=== PATIENT | female | born 1985 | race Caucasian/White ===

== ENCOUNTER 2023-07-12 08:40 | Inpatient (IN) | payer OTHER, SELFPAY ==
[2023-07-10] VITALS (10 sets, daily range): BP systolic 95–154; BP diastolic 62–90; BMI 22.4; BMI 23.0
[2023-07-10] MEDS: ZOFRAN 4 MG IV ×2 (10:23→20:11)
[2023-07-10] MEDS: NSS 1000 IV ×3 (10:24→20:11)
--- NOTE | 2023-07-10 10:29 | ED.GENMED ---
History of Present Illness
General
Chief Complaint: Abdominal Pain
Source: patient
Exam Limitations: none
Time Seen by Provider: 07/10/23 10:16
Travel History
Have you had any contact with someone who has COVID-19?: No
Do you have any symptoms of coronavirus? Fever > 100 degrees, chills, cough, shortness of breath, sore throat, loss of taste or smell, muscle aches, or headache?: No
History of Present Illness
History of Present Illness:
38-year-old female presents via EMS with abdominal pain diarrhea and vomiting. This started earlier this morning. She states she has had episodes similar to this in the past but never as she vomited this much. She notes the pain is in the right
side of the abdomen in the center of the abdomen does not radiate to the back. She notes social alcohol use denies marijuana use. She notes regular caffeine use. She states at one point someone diagnosed with pancreatic insufficiency. No prior
abdominal surgical history
Past History
Past History
ED Past Medical History: None
ED Past Surgical History: None
Social History
Personal:
Phy Exam
Physical Exam
Physical Exam:
General: Somewhat ill-appearing female no acute respiratory distress
HEENT: Normocephalic atraumatic
Heart: Regular rate and rhythm no murmurs
Lungs: Clear no wheeze
Abdomen: Soft tender to the epigastric and right side of the abdomen. No guarding rebound normal bowel sounds nondistended
Extremities: No cyanosis
Course
Orders/Labs/Results
Orders:
Orders
07/10/23 10:17
Electrocardiogram (*1) Urgent
Reason for Study: Fatigue / Weakness
EKG- Treatment ONCE
Test Result ONCE
07/10/23 10:19
Ondansetron Injectable [Zofran] 4 mg IV NOW STA
07/10/23 10:24
0.9% Sodium Chloride 1000 ml [Nss] 1,000 ml IV BOLUS
07/10/23 10:26
US Abdomen Complete/Upper Urgent
Comment:
Reason For Exam: RUQ pain
07/10/23 10:28
Complete Blood Count/With Diff Urgent
07/10/23 10:44
Metoclopramide [Reglan] 10 mg .ROUTE .STK-MED ONE
07/10/23 10:45
Diphenhydramine [Benadryl] 50 mg .ROUTE .STK-MED ONE
07/10/23 10:47
Metoclopramide [Reglan] 10 mg IV NOW STA
07/10/23 10:48
Diphenhydramine [Benadryl] 25 mg IV NOW STA
07/10/23 11:33
Comprehensive Metabolic Panel Urgent
HCG, Serum Qualitative Screen Urgent
Lipase Urgent
07/10/23 12:44
Haloperidol Lactate [Haldol] 2 mg IV NOW STA
07/10/23 13:30
Famotidine [Pepcid] 20 mg IV NOW STA
07/10/23 13:48
0.9% Sodium Chloride 1000 ml [Nss] 1,000 ml IV BOLUS
Abnormal Lab Results
07/10/23 07/10/23
10:28 11:33
MCH 32.0 H pg
(27.0-31.0)
Abs Immat Gran (auto) 0.1 H 10^3/uL
(0-0.05)
Absolute Neuts (auto) 8.2 H 10^3/uL
(1.4-6.5)
Immature Gran % 0.6 H %
(0-0.5)
Neutrophils % 81.6 H %
(42.2-75.2)
Lymphocytes % 13.8 L %
(20.5-51.1)
Chloride 112 H mmol/L
(98-107)
Glucose 118 H mg/dl
(70-99)
07/10/23 10:28
07/10/23 11:33
Vital Signs
Initial and Last Documented VS:
Initial Vital Signs
Temp Pulse Resp BP Pulse Ox
97.8 F 70 16 95/62 98
07/10/23 10:16 07/10/23 10:16 07/10/23 10:16 07/10/23 10:16 07/10/23 10:16
Last Documented Vital Signs
Temp Pulse Resp BP Pulse Ox
97.8 F 73 26 95/62 100
07/10/23 10:16 07/10/23 10:45 07/10/23 10:45 07/10/23 10:16 07/10/23 10:16
MDM/Problems Addressed
Differential Diagnosis Includes:
Abdominal pain nausea vomiting with diarrhea consider viral illness versus pancreatitis versus biliary colic
Check for electrolyte abnormality with blood work. Fluids ordered Zofran ordered. Ultrasound pending.
*Critical Care Note
Total Time (30-74mins, 75-104mins- exclusive of procedures): Not Applicable
Update Note
Update Note:
Patient given multiple rounds of nausea medicine including Zofran Reglan and now Haldol. She states she is still nauseous cannot keep anything down now requiring a second bag of fluid. Reviewed the ultrasound which is negative for acute findings.
Nothing specific otherwise on exam. Patient's nausea and vomiting is intractable. Cannot send home. Will admit for intractable symptoms.
ED Attending Note
-
Portions of this chart may have been created with voice recognition software.� Occasional wrong word or��sound alike� substitutions may have occurred due to the inherent limitations of voice recognition software.
Discharge Plan
Departure
Patient Disposition: Admit
Date of Disposition: 07/10/23
Time of Disposition: 13:51
Admit to: Med/Surg
Presentation/result/management discussed w/ accepting MD/DO: Hospitalist
Discharge Problem:
Nausea & vomiting
Referrals:
UNKNOWN - PT DOES,NOT KNOW [Family Provider] -
Interventions
Interventions:
*Risk Screen - Suicide Last Done: 07/10/23 10:16
*General Assessment Last Done: 07/10/23 10:16
*Neglect/Abuse Screening Last Done: 07/10/23 10:16
ED- Fall Risk Assessment Last Done: 07/10/23 10:16
*ED COVID-19 Vaccine History Last Done: 07/10/23 10:16
Discharge Date and Time
Print Language: SUDANESE
[2023-07-10 10:43] LABS: % Basophils 0.2 % (0-2); % Immature Granulocytes 0.6 % (0-0.5); % Lymphocytes 13.8 % (20.5-51.1); % Monocytes 3.8 % (1.7-9.3); % Neutrophils 81.6 % (42.2-75.2); Absolute Immature Granulocytes 0.1 10^3/uL (0-0.05); Absolute Lymphocytes 1.4 10^3/uL (1.2-3.4); Absolute Monocytes 0.4 10^3/uL (0.1-0.6); Absolute Neutrophils 8.2 10^3/uL (1.4-6.5); Hemoglobin 14.1 g/dL (12.0-16.0); Mean Corp Hgb Conc. 35.3 g/dL (33.0-37.0); Mean Corpuscular Volume 90.9 fL (81.0-99.0); Mean Platelet Volume 9.3 fL (7.4-10.4); Nucleated Red Blood Cells % 0 %; Platelet Count 311 10^3/uL (130-400); Red Cell Dist. Width 11.8 % (11.5-14.5)
[2023-07-10] MEDS: REGLAN 10 MG IV ×2 (10:48→23:25)
[2023-07-10] MEDS: BENADRYL 25 MG IV (10:49)
[2023-07-10 12:03] LABS: HCG, Serum Qualitative Screen Negative
[2023-07-10 12:04] LABS: ALT (SGPT) 19 U/L (0-35); AST (SGOT) 25 U/L (14-36); Albumin 4.5 g/dl (3.5-5.0); Alkaline Phosphatase 69 U/L (38-126); Blood Urea Nitrogen 15 mg/dl (7-17); Calcium 9.4 mg/dl (8.4-10.2); Carbon Dioxide 23 mmol/L (22-30); Chloride 112 mmol/L (98-107); Estimated Creatinine Clearance 108 ml/min; Glucose 118 mg/dl (70-99); Lipase 58 U/L (23-300); Sodium 143 mmol/L (135-145); Total Bilirubin 0.9 mg/dl (0.2-1.3); Total Protein 6.8 g/dl (6.3-8.2); eGFR > 60.00
[2023-07-10] MEDS: HALDOL 2 MG IV (12:46)
[2023-07-10] MEDS: PEPCID 20 MG IV (13:50)
--- NOTE | 2023-07-10 16:39 | HPS.HSE ---
Family Physician
-
Family Physician: NOT KNOW UNKNOWN - PT DOES
Chief Complaint
-
Intractable nausea and vomiting
History of Present Illness
Patient is a 38-year-old female with no prior medical history other than reported periodic episodes of nausea and vomiting who presents to the emergency room with acute onset of abdominal discomfort, persistent nausea and vomiting for less than 24
hours. Patient reports abdominal discomfort. She has been afebrile although reports to chills at home. She had single episode of a loose bowel movement. She denies any sick contacts or recent travel. She states that she has periodic episode of
nausea and vomiting and has been evaluated with gastroenterology in the past including endoscopy, although could not recall timing. She denies any illicit substances use or alcohol use. She presented to emergency room today because of the
persistent symptoms.
While in emergency room patient is afebrile, hemodynamically stable and nontoxic-appearing. She was treated with IV fluids antiemetics, Haldol, Pepcid with no significant improvement of symptoms.
Medical History
Past Medical History
Past Medical History: Denies Asthma, Cancer, HTN, IDDM or NIDDM
Past Surgical History: Reports None
Social History
Tobacco: Non-smoker
Alcohol: Occasional
Drug: None
Living: With Family
Family History
Family History: Not pertinent
Allergies / Home Medications
Allergies reflects when Allergies were last updated in [facility].
Home Medications with original date entered in [facility]
Allergy/Medication List:
Allergies
Allergy/AdvReac Type Severity Reaction Status Date / Time
No Known Allergies Allergy Unverified 07/10/23 10:18
Home Medications
No Meds [No Current Medications] 07/10/23
Review of Systems
-
A 12 point ROS was completed and negative except as noted: Yes
Physical Exam
Vital Signs
Vital Signs
Temp Pulse Resp BP Pulse Ox
97.8 F 54 13 105/90 100
07/10/23 10:16 07/10/23 14:30 07/10/23 14:30 07/10/23 14:00 07/10/23 10:16
Physical Exam
General: Well Developed, Well Nourished and No Apparent Distress
HEENT: NormoCephalic, Moist mucous membranes and Atraumatic
Respiratory: Clear
Cardiac: S1/S2 and Regular Rhythm; No Murmur or Rub
GI: Soft, Non Tender, Non Distended and Normal Bowel Sounds; No Organomegaly
Rectal: Deferred by Provider
Musculoskeletal: No Clubbing, No Cyanosis and No Edema
Skin: No Rash
Neuro: Nonfocal/grossly intact
Laboratory Results
-
07/10/23 10:28
07/10/23 11:33
Laboratory Results
Total Bilirubin 0.9 mg/dl (0.2-1.3) 07/10/23 11:33
AST 25 U/L (14-36) 07/10/23 11:33
ALT 19 U/L (0-35) 07/10/23 11:33
Alkaline Phosphatase 69 U/L (38-126) 07/10/23 11:33
Lipase 58 U/L (23-300) 07/10/23 11:33
Impression/Plan
-
IMPRESSION:
Persistent nausea and vomiting.
Unclear etiology
Afebrile and hemodynamically stable, nontoxic-appearing
Exam with benign abdomen
Laboratory workup including CBC CMP within normal limits
Abdominal ultrasound unremarkable
PLAN:
Admit for observation
Check urine drug screen.
Urinalysis and reflex to culture
Hemoglobin A1c, TSH.
Clear liquid diet
Continue IV fluids
IV PPI
Antiemetics.
Follow-up with CBC/CMP in AM.
If persistent symptoms, consider additional imaging and gastroenterology evaluation.
Full code
DVT prophylaxis with heparin.
[2023-07-10] MEDS: PROTONIX IV 40 MG IV (18:13)
[2023-07-10] MEDS: NSS (PRESERVATIVE FREE) 10 ML IV (18:13)
[2023-07-10 18:58] LABS: ALT (SGPT) 17 U/L (0-35); AST (SGOT) 21 U/L (14-36); Albumin 4.6 g/dl (3.5-5.0); Alkaline Phosphatase 66 U/L (38-126); Blood Urea Nitrogen 15 mg/dl (7-17); Calcium 9.5 mg/dl (8.4-10.2); Carbon Dioxide 18 mmol/L (22-30); Chloride 113 mmol/L (98-107); Estimated Creatinine Clearance 104 ml/min; Glucose 126 mg/dl (70-99); Potassium 4.1 mmol/L (3.5-5.1); Sodium 143 mmol/L (135-145); Total Bilirubin 1.1 mg/dl (0.2-1.3); eGFR > 60.00
[2023-07-10 19:11] LABS: TSH 2.71 uIU/ml (0.47-4.68)
[2023-07-10] MEDS: FLUSH (NSS) 1 FLUSH IV (20:12)
--- NOTE | 2023-07-10 20:20 | PTCARENOTE ---
Pt complained of 3/10 middle, upper abd pain from throwing up, INNER TUBE TUBER MACHINE OPERATOR made aware, new order provided, see MAR. Pt complained of gas pains and feeling uncomfortable, INNER TUBE TUBER MACHINE OPERATOR made aware, new order provided, see MAR. Will continue to monitor.
[2023-07-10] MEDS: TYLENOL 650 MG PO (21:51)
[2023-07-10] MEDS: MYLICON 80 MG PO (21:51)
--- NOTE | 2023-07-10 23:10 | PTCARENOTE ---
Pt complained of unresolved nausea. POCKET FLAP CREASING MACHINE OPERATOR made aware, new order provided, see MAR.
[2023-07-10 23:11] LABS: Urine Albumin Trace (Neg - Trace); Urine Bilirubin Negative (Negative); Urine Character Clear (Clear); Urine Color Yellow; Urine Glucose Trace (Negative); Urine Ketone Trace (Negative); Urine Leukocyte Negative (Negative); Urine Nitrite Negative (Negative); Urine Occult Blood Trace (Negative); Urine Specific Gravity 1.025 (<1.030); Urine Urobilinogen Negative (Neg - 1+)
[2023-07-10 23:18] LABS: Amphetamines Negative (Negative); Barbiturates Negative (Negative); Benzodiazepines Negative (Negative); Buprenorphine Negative (Negative); Cocaine Negative (Negative); Marijuana Negative (Negative); Methadone Negative (Negative); Methamphetamines Negative (Negative); Opiates Negative (Negative); Phencyclidine Negative (Negative); Tricyclic Antidepressants Negative (Negative)
[2023-07-11 00:56] LABS: Urine Amorphous Seen; Urine Squamous Cell >30 /LPF (Few)
[2023-07-11 00:58] LABS: Urine Bacteria Moderate (Negative); Urine Mucus Moderate; Urine Red Blood Cell 0-2 /HPF (0-2); Urine White Cell 0-2 /HPF (0-5)
[2023-07-11] MEDS: ZOFRAN 4 MG IV ×3 (02:21→19:59)
[2023-07-11 07:00] VITALS: BP 135/54
[2023-07-11 07:12] LABS: % Basophils 0.3 % (0-2); % Immature Granulocytes 0.7 % (0-0.5); % Lymphocytes 12.4 % (20.5-51.1); % Monocytes 7.2 % (1.7-9.3); % Neutrophils 79.4 % (42.2-75.2); Absolute Immature Granulocytes 0.1 10^3/uL (0-0.05); Absolute Lymphocytes 1.5 10^3/uL (1.2-3.4); Absolute Monocytes 0.8 10^3/uL (0.1-0.6); Absolute Neutrophils 9.3 10^3/uL (1.4-6.5); Hemoglobin 12.1 g/dL (12.0-16.0); Mean Corp Hgb Conc. 34.6 g/dL (33.0-37.0); Mean Corpuscular Hgb 31.8 pg (27.0-31.0); Mean Corpuscular Volume 91.9 fL (81.0-99.0); Nucleated Red Blood Cells % 0 %; Platelet Count 256 10^3/uL (130-400); Red Blood Cell Count 3.81 10^6/uL (4.20-5.40); Red Cell Dist. Width 12.2 % (11.5-14.5); White Blood Cell Count 11.7 10^3/uL (4.8-10.8)
[2023-07-11] MEDS: PROTONIX IV 40 MG IV ×2 (07:38→19:59)
[2023-07-11] MEDS: NSS (PRESERVATIVE FREE) 10 ML IV ×2 (07:39→19:59)
[2023-07-11] MEDS: NSS 1000 IV (07:43)
[2023-07-11] MEDS: MYLICON 80 MG PO ×2 (07:43→17:56)
[2023-07-11 08:34] LABS: ALT (SGPT) 16 U/L (0-35); AST (SGOT) 24 U/L (14-36); Albumin 4.5 g/dl (3.5-5.0); Alkaline Phosphatase 62 U/L (38-126); Blood Urea Nitrogen 16 mg/dl (7-17); Calcium 9.8 mg/dl (8.4-10.2); Carbon Dioxide 19 mmol/L (22-30); Chloride 110 mmol/L (98-107); Estimated Creatinine Clearance 104 ml/min; Glucose 111 mg/dl (70-99); Potassium 3.5 mmol/L (3.5-5.1); Sodium 140 mmol/L (135-145); Total Bilirubin 1.3 mg/dl (0.2-1.3); Total Protein 6.8 g/dl (6.3-8.2); eGFR > 60.00
[2023-07-11 10:09] LABS: Glycohemoglobin (HgbA1c) 5.4 % (4.0-5.6)
[2023-07-11] MEDS: COMPAZINE 10 MG IV (11:17)
--- NOTE | 2023-07-11 12:28 | CON.GI ---
Addendum entered and electronically signed by Mary Kate Santana MD 07/11/23 16:52:
I saw and examined the patient.
The ASSISTANT TENNIS COACH or PA's note was reviewed and I agree with the note.
Comment: 38-year-old female with history of GERD presenting with complaints of intractable vomiting since Monday at 1 AM. 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
bilious vomiting, multiple episodes, came to mom who lives in [place] and was brought in by EMS to the ER. Reports multiple similar episodes in the last 5 years, last episode was 3 weeks ago and last episode when she was admitted to [facility] was about 7 months ago. In between episodes, she feels well. She does report abdominal pain couple of times a week in the lower abdomen, no vomiting in between episodes. History of heartburn, takes omeprazole twice a day with relatively
good control of symptoms. No trouble swallowing. Bowel pattern is erratic, she has either constipation or diarrhea, she did not go for 5 days and may have loose stool for 2 days. Reports having black stool yesterday but documented brown stool per
RN record. No unintentional weight loss or NSAID use.
In the emergency room, labs unremarkable including CBC, CMP, lipase levels. Moderate bacteria in the urine, urine drug screen negative.
Reports having upper endoscopy and colonoscopy at [facility] 5 years ago, cannot recall findings. As per patient, she was on pancreatic enzyme supplements for pancreatic exocrine insufficiency, she cannot recall what symptoms she had but
says had to stop pancreatic enzyme supplements due to insurance reasons. Patient not sure if she had pancreatitis in the past.
No family history of colon cancer or polyps or inflammatory bowel disease but father with history of recurrent pancreatitis.
-Intractable nausea, vomiting, multiple episodes of unclear etiology. She does smoke and has couple of drinks a week but no marijuana use.
Does not take any medications or narcotics. No history of diabetes.
No significant electrolyte abnormalities.
Will treat with [id number] antiemetics for nausea and vomiting, EPI IV twice daily.
NPO.
Will do CT scan of the abdomen and pelvis to evaluate tomorrow.
Following that, we will need an upper endoscopy.
Will also review records from [facility].
Will follow-up
Original Note:
Consultation
-
Date/Time Consultation Requested: 07/11/23 1103
Date/Time Consultation Performed: 07/11/23 1150
Requesting Provider: Dr. Vega
Performing Provider: Dr. Santana/LAM Jose
Reason for Consultation: intractable vomiting
Medical History
Chief Complaint / HPI
Chief Complaint: intractable vomiting
History of Present Illness:
38-year-old female with past medical history of pancreatic exocrine insufficiency, GERD who was previously on pancreatic enzymes however had to stop this because of no insurance, omeprazole 20 mg [id number] as an outpatient who presents to the
emergency room with intractable nausea and vomiting. Patient states that over the past 5 years she has had issues with nausea and vomiting as well as alternating diarrhea and constipation. She states she had an EGD and colonoscopy with GI in
[facility]. She does not recall the results of either test. She states her father had multiple episodes of pancreatitis she does not recall the etiology of this. He has since . The patient states that once every month or 2 she has
an episode where she has intractable vomiting. She does not have any early satiety or unintentional weight loss. She states this just happens. She has associated epigastric discomfort with burning in her esophagus. Patient states that
approximately Monday at 1 AM she started with acute onset of vomiting initially it was a couple times then she started having multiple times an hour and it became intractable and was bilious in nature. She denies any fevers but had chills and
sweats. She has significant erructation. She also has associated epigastric discomfort that is dull with burning up into her esophagus. She does not recall seeing any blood coffee grounds or hematemesis. She does not recall having any bloody
bowel movements or melena except she states that she had an accident in the emergency room where she thinks that it was dark stool. She takes rare NSAIDs. She does not take any Tylenol as she stated it 'hurts her stomach'. She does smoke
cigarettes. She does not use any marijuana products. She does drink alcohol 2-3 times a week. She states these are usually mixed drinks with hard liquor in them. She does not have any history of alcohol abuse. She states that the last time she
was seen in the hospital was approximately a couple months ago at [facility] for the same symptoms. She states usually they give her Zofran and send her home. She does not recall the last time she had any abdominal imaging prior to this ER
visit. Past surgical history includes tonsillectomy and wisdom teeth. She has no family history of gastrointestinal malignancy or IBD. WBC count 11.7 (up from 10.0), hemoglobin 12.0, hematocrit 35.0, platelet count 256, sodium 140, potassium 3.5,
chloride 110, CO2 19, BUN 16, creatinine 0.7, glucose 111, hemoglobin A1c 5.4, calcium 9.8, total bilirubin 1.3, AST 24, ALT 16, alk phos 62, albumin 4.5, hCG qualitative negative, lipase 58, TSH 2.71, urine tox screen negative, UA trace ketones,
trace occult blood, moderate bacteria with trace glucose, moderate mucus and epithelial cells. Ultrasound the abdomen shows no acute hepatobiliary abnormality.
Past Medical History
Past Medical History: GERD and Other (Pancreatic exocrine insufficiency, alternating diarrhea/constipation, intermittent vomiting )
Past Surgical History: Tonsilectomy and Other (wisdom teeth)
Social History
Tobacco: Smoker
Alcohol: Occasional (2-3 a week)
Drug: None
Employment: Employed
Family History
Family History: Other (No family history of gastrointestinal malignancy or IBD, father had pancreatitis multiple times ())
Allergies / Home Medications
Allergy/AdvReac Type Severity Reaction Status Date / Time
No Known Allergies Allergy Unverified 07/10/23 10:18
�Medication �Instructions �Recorded
No Meds [No Current Medications] 07/10/23
Review of Systems
-
All other systems: A 12 pt ROS was Negative except as stated above in HPI
Vital Signs
Temp Pulse Resp BP Pulse Ox
98.4 F 60 18 135/54 98
07/11/23 07:00 07/11/23 07:00 07/11/23 07:00 07/11/23 07:00 07/11/23 07:00
Physical Exam
Exam
General: Other (Actively retching and vomiting)
HEENT: Anicteric
Respiratory: Clear
Cardiac: Regular Rhythm
GI: Soft, Non Distended, Normal Bowel Sounds and Tender (epigastric)
Skin: Warm, Dry and Other (multiple tattoos)
Neuro: AO x 3
Psych: Calm
Results
WBC 11.7 10^3/uL (4.8-10.8) H 07/11/23 07:01
Hgb 12.1 g/dL (12.0-16.0) 07/11/23 07:01
Hct 35.0 % (37.0-47.0) L 07/11/23 07:01
MCV 91.9 fL (81.0-99.0) 07/11/23 07:01
Plt Count 256 10^3/uL (130-400) 07/11/23 07:01
Absolute Neuts (auto) 9.3 10^3/uL (1.4-6.5) H 07/11/23 07:01
Sodium 140 mmol/L (135-145) 07/11/23 07:01
Potassium 3.5 mmol/L (3.5-5.1) 07/11/23 07:01
Chloride 110 mmol/L (98-107) H 07/11/23 07:01
Carbon Dioxide 19 mmol/L (22-30) L 07/11/23 07:01
BUN 16 mg/dl (7-17) 07/11/23 07:01
Creatinine 0.7 mg/dL (0.6-1.0) 07/11/23 07:01
Calcium 9.8 mg/dl (8.4-10.2) 07/11/23 07:01
Total Bilirubin 1.3 mg/dl (0.2-1.3) 07/11/23 07:01
AST 24 U/L (14-36) 07/11/23 07:01
ALT 16 U/L (0-35) 07/11/23 07:01
Alkaline Phosphatase 62 U/L (38-126) 07/11/23 07:01
Lipase 58 U/L (23-300) 07/10/23 11:33
Diagnostic Image Results:
Us Abd 07/10/23:
LIVER: Length of 17 cm. Homogeneous echotexture with no discrete lesions.
GALLBLADDER: No stones, sludge, wall thickening or pericholecystic fluid. No songraphic Eisenberg sign elicited.
BILE DUCTS: Extra-hepatic common bile duct measures 3 mm. No intrahepatic ductal dilation.
RETROPERITONEUM: IVC and abdominal aorta are unremarkable. Pancreas is grossly unremarkable.
SPLEEN: Length of 9.2 cm. No discrete lesions.
KIDNEYS: Right kidney measures 10.1 cm in length. Left kidney measures 11.3 cm in length. No hydronephrosis or nephrolithiasis.
Prior GI Procedures:
EGD: Per patient states 5 years ago at GI in [facility]. States 'I do not know results'.
Colonoscopy: Per patient states 5 years ago at GI in [facility]. States 'I do not know results'.
Assessment / Plan
-
38-year-old female with past medical history of pancreatic exocrine insufficiency, GERD who was previously on pancreatic enzymes however had to stop this because of no insurance, omeprazole 20 mg [id number] as an outpatient who presents to the
emergency room with intractable nausea and vomiting. WBC count 11.7 (up from 10.0), hemoglobin 12.0, hematocrit 35.0, platelet count 256, sodium 140, potassium 3.5, chloride 110, CO2 19, BUN 16, creatinine 0.7, glucose 111, hemoglobin A1c 5.4,
calcium 9.8, total bilirubin 1.3, AST 24, ALT 16, alk phos 62, albumin 4.5, hCG qualitative negative, lipase 58, TSH 2.71, urine tox screen negative, UA trace ketones, trace occult blood, moderate bacteria with trace glucose, moderate mucus and
epithelial cells. Ultrasound the abdomen shows no acute hepatobiliary abnormality. Patient was initially treated with bowel rest, pantoprazole 40 mg daily, Zofran 4 mg IV every 6, Compazine 10 mg IV every 6 as needed. She was also given 1 dose of
Reglan 10 mg, Haldol, Benadryl without much success yesterday. She was not able to tolerate any sips of clears and immediately vomited this up today. Patient had an EKG and her QTc is currently 466.
Impression:
Intractable Vomiting
Epigastric pain
Plan:
-NPO except meds for now until acute vomiting subsides
-IVF
-Change to around the clock antiemetics to hopefully break vomiting cycle
-Would like to get CT Abd/Pelvis with oral and IV contrast after vomiting cycle broken to assess patient better.
-Would also plan on EGD this admission
-Continue Pantoprazole 40 mg IV BID
-Further recommendations to be forthcoming.
-
-
Thank you for consultation and allowing me to participate in the patient's care. Please call the construction consultant GI physician during the after hours with any questions or concerns.
[2023-07-11 15:00] VITALS: BP 149/85
[2023-07-11] MEDS: REGLAN 5 MG IV ×2 (16:00→23:29)
[2023-07-11] MEDS: TYLENOL 650 MG PO (16:24)
--- NOTE | 2023-07-11 16:56 | CM ---
Alert awake oriented patient who lives with her 2 children 8yo and 16 yo in a 2 story home with 3 step to enter and 10 steps to bed/bath room.Her mom Gisell is caring for family and is a support to her. She is independent in driving and all
activities of daily living.Offered VN she declined. She has no insurance . Ysabel DAS saw patient about no insurance.
No SNF/VN hx
Pharmacy [facility]
PCP Dr Pinto
PLAN Home no needs
--- NOTE | 2023-07-11 17:11 | W.PN.HOSP.TC ---
Today's Communication/Plan
-
Ongoing GI evaluation
Assessment / Plan
Assessment / Plan
IMPRESSION:
Persistent nausea and vomiting.
Unclear etiology
Afebrile and hemodynamically stable, nontoxic-appearing
Exam with benign abdomen
Laboratory workup including CBC CMP within normal limits
Abdominal ultrasound unremarkable
PLAN:
Urine drug screen negative
Urinalysis and reflex to culture
Hemoglobin A1c, TSH, normal
Clear liquid diet
Continue IV fluids
IV PPI
Antiemetics standing dose including Reglan.
GI consult
CT a/p
Possibly EGD
Full code
DVT prophylaxis with heparin.
Anticipated Discharge: 24 - 48 hours
Subjective/Interval History
-
Date of Service: July 11, 2023
Objective Data
-
Labs:
Laboratory Results
07/11/23
07:01
WBC 11.7 H
Hgb 12.1
Hct 35.0 L
Plt Count 256
Sodium 140
Potassium 3.5
Chloride 110 H
Carbon Dioxide 19 L
BUN 16
Creatinine 0.7
Glucose 111 H
Calcium 9.8
Total Bilirubin 1.3
AST 24
ALT 16
Alkaline Phosphatase 62
Vital Signs:
Vital Signs
Temp Pulse Resp BP Pulse Ox
100.5 F H 76 18 149/85 100
07/11/23 15:00 07/11/23 15:00 07/11/23 15:00 07/11/23 15:00 07/11/23 15:00
I&O
07/10/23 07/11/23 07/12/23
06:59 06:59 06:59
Intake Total 1720 / 1720
Output Total 300 / 300
Balance 1420 / 1420
Physical Exam
-
General: Well Developed and No Apparent Distress
HEENT: Normocephalic, Atraumatic and Moist Mucous Membranes
Respiratory: Clear to Auscultation
Cardiac: Regular Rhythm and S1/S2; Negative Murmur, Rub or Gallop
GI: Soft, Nontender, Nondistended and Normal Bowel Sounds; Negative Organomegaly
Rectal: Deferred by Provider
Musculoskeletal: No Clubbing, No Cyanosis and No Edema
Skin: Negative Rash
Neuro: Nonfocal/Grossly Intact
--- NOTE | 2023-07-11 19:40 | PTCARENOTE ---
Pt complained of heartburn, REDUCTION PLANT SUPERVISOR made aware, new order provided, see MAR. Will continue to monitor.
[2023-07-11] MEDS: TUMS 1 TABLET PO (19:58)
--- NOTE | 2023-07-11 20:40 | PTCARENOTE ---
Pt complained of 8/10 abd pain from repeatedly belching. WORKDAY DIRECTOR made aware, new order provided, see MAR. Will reassess pain.
[2023-07-11] MEDS: TORADOL 15 MG IV (21:28)
--- NOTE | 2023-07-11 22:35 | PTCARENOTE ---
Pt complained of unrelieved 8/10 abd pain. Pt hunched over on side of bed. MARINE OIL TERMINAL SUPERINTENDENT made aware, new order provided, see MAR.
[2023-07-11] MEDS: DILAUDID 0.5 MG IV (22:50)
[2023-07-11 23:41] VITALS: BP 137/81
[2023-07-12] MEDS: ZOFRAN 4 MG IV ×3 (02:48→16:38)
[2023-07-12] MEDS: NSS 1000 IV ×2 (02:49→13:15)
[2023-07-12] MEDS: MYLICON 80 MG PO (02:49)
[2023-07-12] MEDS: TUMS 1 TABLET PO (02:49)
[2023-07-12] MEDS: NSS IV (02:54)
--- NOTE | 2023-07-12 02:54 | PTCARENOTE ---
Pt complained of heartburn, indigestion, and 6/10 abd pain. DETECTIVE CHIEF made aware, new orders provided, see MAR.
[2023-07-12] MEDS: DILAUDID 0.25 MG IV (02:57)
[2023-07-12] MEDS: REGLAN 5 MG IV ×2 (06:13→12:04)
[2023-07-12 06:15] LABS: ALT (SGPT) 44 U/L (0-35); AST (SGOT) 47 U/L (14-36); Albumin 3.7 g/dl (3.5-5.0); Alkaline Phosphatase 50 U/L (38-126); Blood Urea Nitrogen 20 mg/dl (7-17); Calcium 9.3 mg/dl (8.4-10.2); Carbon Dioxide 22 mmol/L (22-30); Chloride 108 mmol/L (98-107); Estimated Creatinine Clearance 121 ml/min; Glucose 104 mg/dl (70-99); Potassium 3.6 mmol/L (3.5-5.1); Sodium 138 mmol/L (135-145); Total Bilirubin 1.1 mg/dl (0.2-1.3); Total Protein 5.8 g/dl (6.3-8.2); eGFR > 60.00
[2023-07-12 07:00] VITALS: BP 129/77
[2023-07-12] MEDS: PROTONIX IV 40 MG IV ×2 (08:36→19:36)
[2023-07-12] MEDS: NSS (PRESERVATIVE FREE) 10 ML IV ×2 (08:37→19:36)
[2023-07-12] MEDS: DILAUDID 0.5 MG IV ×4 (09:15→21:33)
[2023-07-12 15:00] VITALS: BP 127/80
--- NOTE | 2023-07-12 15:17 | W.PN.GI.CBS2 ---
Addendum entered and electronically signed by Mary Kate Santana MD 07/12/23 16:26:
I saw and examined the patient.
The MACHINING MANAGER or PA's note was reviewed and I agree with the note.
Comment: Patient continues to complain of nausea, had couple of episodes of vomiting, mainly bilious, no fevers or chills.
Noted slightly elevated transaminases, will monitor and follow-up.
Will get CT scan of the abdomen pelvis with contrast to evaluate.
All other workup including urine drug screen, ultrasound unremarkable.
Continue PPI IV twice daily and antiemetics.
Will follow-up on the above.
Original Note:
Today's Communication / Plan
-
Await CT of the abdomen and pelvis. Consider EGD if CT is unrevealing. Check hepatitis serologies. Continue as needed antiemetics.
Assessment / Plan
-
The pt is a 38-year-old female with past medical history significant for pancreatic exocrine insufficiency, GERD who was previously on pancreatic enzymes however had to stop this because of no insurance, omeprazole 20 mg [id number] as an
outpatient who presents to the emergency room with intractable nausea and vomiting. WBC count 11.7 (up from 10.0), hemoglobin 12.0, hematocrit 35.0, platelet count 256, sodium 140, potassium 3.5, chloride 110, CO2 19, BUN 16, creatinine 0.7, glucose
111, hemoglobin A1c 5.4, calcium 9.8, total bilirubin 1.3, AST 24, ALT 16, alk phos 62, albumin 4.5, hCG qualitative negative, lipase 58, TSH 2.71, urine tox screen negative, UA trace ketones, trace occult blood, moderate bacteria with trace
glucose, moderate mucus and epithelial cells. Ultrasound the abdomen shows no acute hepatobiliary abnormality. Patient was initially treated with bowel rest, pantoprazole 40 mg daily, Zofran 4 mg IV every 6, Compazine 10 mg IV every 6 as needed.
She was also given 1 dose of Reglan 10 mg, Haldol, Benadryl without much success yesterday. She was not able to tolerate any sips of clears and immediately vomited this up today. Patient had an EKG and her QTc is currently 466. She has been on
Reglan around the clock with cessation of her vomiting but continues with nausea and epigastric burning.
Problem list:
-Intractable nausea, vomiting
-Epigastric pain
-elevated AST/ALT
-hx GERD
-hx pancreatic exocrine insufficiency
Recommendations:
-Etiology of presenting symptoms unclear. Ultrasound imaging showing no acute hepatobiliary abnormalities. She is awaiting CT scan for further evaluation. Her vomiting has resolved but she continues to be nauseous with epigastric pain.
-Await CT imaging for further evaluation
-Continue PPI twice daily
-If CT has no concerning findings okay to start on sips of clear liquids
-Consider EGD tomorrow if CT scan is unrevealing
-Continue IV fluids while n.p.o.
-PRN analgesics with Zofran, will stop Reglan around the clock
-Will trend LFTs, unclear why this is elevated. Will check hepatitis serologies
-Will follow
Subjective
Subjective
Date of Service: July 12, 2023
The patient was seen and examined at the bedside. She continues with nausea although the vomiting has subsided. She continuously feels a burning/acidic feeling in her stomach into her chest. She has been n.p.o. awaiting CT scan. Noted with a
mildly up-trending AST/ALT.
Objective
Data Reviewed
Laboratory Data:
Laboratory Results
07/11/23 07:01
07/12/23 05:06
Laboratory Results
Total Bilirubin 1.1 mg/dl (0.2-1.3) 07/12/23 05:06
AST 47 U/L (14-36) H 07/12/23 05:06
ALT 44 U/L (0-35) H 07/12/23 05:06
Alkaline Phosphatase 50 U/L (38-126) 05/22/24 05:06
Lipase 58 U/L (23-300) 07/10/23 11:33
Vital Signs and I&O:
Vital Signs
Temp Pulse Resp BP Pulse Ox
99.0 F 67 18 129/77 100
07/12/23 07:00 07/12/23 07:00 07/12/23 07:00 07/12/23 07:00 07/12/23 07:00
I&O
07/11/23 07/12/23 07/13/23
06:59 06:59 06:59
Intake Total 1720 / 1720 1530 / 1530
Output Total 300 / 300
Balance 1420 / 1420 1530 / 1530
Physical Exam
Physical Exam
HEENT: Anicteric
Cardiology: S1 and S2 (Regular rate/rhythm)
Pulmonary: Clear
GI: Soft, Non Distended, Tender (mid-epigastric tenderness) and Normal Bowel Sounds
Extremities: No Edema
Neuro: Non Focal
[2023-07-12] MEDS: OMNIPAQUE 50 ML PO (16:10)
--- NOTE | 2023-07-12 16:54 | W.PN.HOSP.TC ---
Today's Communication/Plan
-
Remains symptomatic with persistent nausea and emesis
Could not tolerate oral contrast pending CT scan
Exam remains with benign abdomen.
CT scan of the abdomen
May require endoscopic evaluation while inpatient.
Continue PPI and antiemetics.
Assessment / Plan
Assessment / Plan
IMPRESSION:
Persistent nausea and vomiting.
Unclear etiology
Afebrile and hemodynamically stable, nontoxic-appearing
Exam with benign abdomen
Laboratory workup including CBC CMP within normal limits
Abdominal ultrasound unremarkable
PLAN:
Urine drug screen negative
Urinalysis and reflex to culture
Hemoglobin A1c, TSH, normal
Clear liquid diet
Continue IV fluids
IV PPI
Antiemetics standing dose including Reglan.
GI consult
CT a/p
Possibly EGD
Full code
DVT prophylaxis with heparin.
Anticipated Discharge: 24 - 48 hours
Subjective/Interval History
-
Date of Service: July 12, 2023
Objective Data
-
Labs:
Laboratory Results
07/12/23
05:06
Sodium 138
Potassium 3.6
Chloride 108 H
Carbon Dioxide 22
BUN 20 H
Creatinine 0.6
Glucose 104 H
Calcium 9.3
Total Bilirubin 1.1
AST 47 H
ALT 44 H
Alkaline Phosphatase 50
Vital Signs:
Vital Signs
Temp Pulse Resp BP Pulse Ox
99.6 F 59 18 127/80 98
07/12/23 15:00 07/12/23 15:00 07/12/23 15:00 07/12/23 15:00 07/12/23 15:00
I&O
07/11/23 07/12/23 07/13/23
06:59 06:59 06:59
Intake Total 1720 / 1720 1530 / 1530
Output Total 300 / 300
Balance 1420 / 1420 1530 / 1530
Physical Exam
-
General: Well Developed and No Apparent Distress
HEENT: Normocephalic, Atraumatic and Moist Mucous Membranes
Respiratory: Clear to Auscultation
Cardiac: Regular Rhythm and S1/S2; Negative Murmur, Rub or Gallop
GI: Soft, Nontender, Nondistended and Normal Bowel Sounds; Negative Organomegaly
Rectal: Deferred by Provider
Musculoskeletal: No Clubbing, No Cyanosis and No Edema
Skin: Negative Rash
Neuro: Nonfocal/Grossly Intact
[2023-07-12 23:37] VITALS: BP 146/77
[2023-07-13] MEDS: ZOFRAN 4 MG IV ×3 (01:14→18:09)
[2023-07-13] MEDS: MYLICON 80 MG PO ×2 (01:14→21:00)
[2023-07-13] MEDS: TYLENOL 650 MG PO (01:15)
[2023-07-13] MEDS: DILAUDID 0.5 MG IV ×6 (01:33→22:17)
[2023-07-13] MEDS: NSS 1000 IV ×2 (04:30→13:54)
--- NOTE | 2023-07-13 05:30 | PTCARENOTE ---
Patient with persistent nausea and vomiting of bilious contents despite PRN Zofran given. CANE FEEDER notified and order placed for x1 5mg IV Compazine, see MAR for administration.
[2023-07-13] MEDS: COMPAZINE 5 MG IV (05:44)
[2023-07-13 05:48] LABS: % Basophils 0.3 % (0-2); % Immature Granulocytes 0.3 % (0-0.5); % Lymphocytes 28.8 % (20.5-51.1); % Monocytes 7.6 % (1.7-9.3); Absolute Lymphocytes 1.9 10^3/uL (1.2-3.4); Absolute Monocytes 0.5 10^3/uL (0.1-0.6); Absolute Neutrophils 4.1 10^3/uL (1.4-6.5); Hematocrit 31.9 % (37.0-47.0); Hemoglobin 11.4 g/dL (12.0-16.0); Mean Corp Hgb Conc. 35.7 g/dL (33.0-37.0); Mean Corpuscular Hgb 31.6 pg (27.0-31.0); Mean Corpuscular Volume 88.4 fL (81.0-99.0); Mean Platelet Volume 9.2 fL (7.4-10.4); Nucleated Red Blood Cells % 0 %; Platelet Count 221 10^3/uL (130-400); Red Blood Cell Count 3.61 10^6/uL (4.20-5.40); Red Cell Dist. Width 11.5 % (11.5-14.5); White Blood Cell Count 6.5 10^3/uL (4.8-10.8)
[2023-07-13 06:09] LABS: ALT (SGPT) 74 U/L (0-35); AST (SGOT) 54 U/L (14-36); Albumin 3.6 g/dl (3.5-5.0); Alkaline Phosphatase 56 U/L (38-126); Blood Urea Nitrogen 14 mg/dl (7-17); Calcium 8.8 mg/dl (8.4-10.2); Carbon Dioxide 22 mmol/L (22-30); Chloride 104 mmol/L (98-107); Estimated Creatinine Clearance 121 ml/min; Glucose 91 mg/dl (70-99); Potassium 3.5 mmol/L (3.5-5.1); Sodium 135 mmol/L (135-145); Total Bilirubin 1.1 mg/dl (0.2-1.3); Total Protein 5.6 g/dl (6.3-8.2); eGFR > 60.00
[2023-07-13 07:30] VITALS: BP 123/74
[2023-07-13] MEDS: NSS (PRESERVATIVE FREE) 10 ML IV ×2 (08:26→21:00)
[2023-07-13] MEDS: PROTONIX IV 40 MG IV ×2 (08:28→21:00)
[2023-07-13 15:41] VITALS: BP 139/92
[2023-07-13 15:45] VITALS: BP 139/92
[2023-07-13 16:00] VITALS: BP 150/94
[2023-07-13 16:15] VITALS: BP 148/86
--- NOTE | 2023-07-13 18:15 | W.PN.HOSP.TC ---
Today's Communication/Plan
-
Reinstate clear liquid diet
CT head to rule out central cause of nausea and vomiting.
Continue antiemetics.
Assessment / Plan
Assessment / Plan
IMPRESSION:
Persistent nausea and vomiting.
Unclear etiology
Afebrile and hemodynamically stable, nontoxic-appearing
Exam with benign abdomen
Laboratory workup including CBC CMP within normal limits
Abdominal ultrasound unremarkable
PLAN:
Urine drug screen negative
Urinalysis and reflex to culture
Hemoglobin A1c, TSH, normal
Clear liquid diet
Continue IV fluids
IV PPI
Antiemetics standing dose including Reglan.
CT a/p limited without contrast (was not able to tolerate) unrevealing
EGD 07/12 unremarkable and unrevealing for cause of persistent nausea and emesis
Check CT scan of the head to rule out central cause
Full code
DVT prophylaxis with heparin.
Anticipated Discharge: 24 - 48 hours
Subjective/Interval History
-
Date of Service: July 13, 2023
Objective Data
-
Vital Signs:
Vital Signs
Temp Pulse Resp BP Pulse Ox
98.5 F 60 16 148/86 98
07/13/23 16:15 07/13/23 16:15 07/13/23 16:15 07/13/23 16:15 07/13/23 16:15
I&O
07/12/23 07/13/23 07/14/23
06:59 06:59 06:59
Intake Total 1530 / 1530 2639 / 2640
Balance 1530 / 1530 264 / 2640
Physical Exam
-
General: Well Developed and No Apparent Distress
HEENT: Normocephalic, Atraumatic and Moist Mucous Membranes
Respiratory: Clear to Auscultation
Cardiac: Regular Rhythm and S1/S2; Negative Murmur, Rub or Gallop
GI: Soft, Nontender, Nondistended and Normal Bowel Sounds; Negative Organomegaly
Rectal: Deferred by Provider
Musculoskeletal: No Clubbing, No Cyanosis and No Edema
Skin: Negative Rash
Neuro: Nonfocal/Grossly Intact
[2023-07-13 20:24] LABS: Hepatitis B Surface Antigen Negative (Negative)
[2023-07-13 20:42] LABS: Hepatitis B Core Ab, Total Negative (Negative)
[2023-07-13 22:17] LABS: Hepatitis B Surface Antibody Positive
[2023-07-13 22:53] LABS: Hepatitis A Antibody, Total Positive (Negative)
[2023-07-13 23:00] VITALS: BP 150/91
[2023-07-14] MEDS: ZOFRAN 4 MG IV ×3 (00:42→20:12)
[2023-07-14] MEDS: MYLICON 80 MG PO (00:42)
[2023-07-14 02:14] LABS: Hepatitis A IgM Antibody Negative (Negative)
[2023-07-14] MEDS: DILAUDID 0.5 MG IV ×5 (02:18→22:29)
[2023-07-14] MEDS: NSS 1000 IV ×2 (03:37→17:32)
[2023-07-14 07:30] VITALS: BP 151/92
[2023-07-14] MEDS: NSS (PRESERVATIVE FREE) 10 ML IV ×2 (07:42→20:11)
[2023-07-14] MEDS: PROTONIX IV 40 MG IV ×2 (07:43→20:11)
[2023-07-14] MEDS: FLUSH (NSS) 2 FLUSH IV (07:46)
[2023-07-14 11:50] VITALS: BMI 23.0
--- NOTE | 2023-07-14 12:54 | W.PN.GI.CBS2 ---
Today's Communication / Plan
-
AXR today without stool burden
CT head neg
HIDA today (d/w radiologist cannot do with CCK)
Start reglan ATC
Will follow with you
Assessment / Plan
-
The pt is a 38-year-old female with past medical history significant for pancreatic exocrine insufficiency, GERD who was previously on pancreatic enzymes however had to stop this because of no insurance, omeprazole 20 mg [id number] as an
outpatient who presents to the emergency room with intractable nausea and vomiting. WBC count 11.7 (up from 10.0), hemoglobin 12.0, hematocrit 35.0, platelet count 256, sodium 140, potassium 3.5, chloride 110, CO2 19, BUN 16, creatinine 0.7, glucose
111, hemoglobin A1c 5.4, calcium 9.8, total bilirubin 1.3, AST 24, ALT 16, alk phos 62, albumin 4.5, hCG qualitative negative, lipase 58, TSH 2.71, urine tox screen negative, UA trace ketones, trace occult blood, moderate bacteria with trace
glucose, moderate mucus and epithelial cells. Ultrasound the abdomen shows no acute hepatobiliary abnormality. Patient was initially treated with bowel rest, pantoprazole 40 mg daily, Zofran 4 mg IV every 6, Compazine 10 mg IV every 6 as needed.
She was also given 1 dose of Reglan 10 mg, Haldol, Benadryl without much success yesterday. She was not able to tolerate any sips of clears and immediately vomited this up today. Patient had an EKG and her QTc is currently 466. She has been on
Reglan around the clock with cessation of her vomiting but continues with nausea and epigastric burning.
Problem list:
-Intractable nausea, vomiting
-Epigastric pain
-elevated AST/ALT
-hx GERD
-hx pancreatic exocrine insufficiency
Recommendations:
- Abd US, CTAP and EGD done on this admission without clear cause of abd pain with N/V
- AXR today without stool burden
- GES will not be conclusive given opioid use
- HIDA scan with CCK to eval for chronic cholecystitis
- Trend LFTs
- Recommend reglan ATC
- EKG at baseline
- C/w PPI IV BID
- Await results of EGD biopsies
Will follow with you
Subjective
Subjective
Date of Service: July 14, 2023
She continues to have oral intolerance with nausea/vomiting. C/o abd pain. She had head CT this AM that was unremarkable.
Objective
Data Reviewed
Laboratory Data:
Laboratory Results
07/13/23 05:13
07/13/23 05:13
Laboratory Results
Total Bilirubin 1.1 mg/dl (0.2-1.3) 07/13/23 05:13
AST 54 U/L (14-36) H 07/13/23 05:13
ALT 74 U/L (0-35) H 07/13/23 05:13
Alkaline Phosphatase 56 U/L (38-126) 07/13/23 05:13
Lipase 58 U/L (23-300) 07/10/23 11:33
Vital Signs and I&O:
Vital Signs
Temp Pulse Resp BP Pulse Ox
98.0 F 61 16 151/92 99
07/14/23 07:30 07/14/23 07:30 07/14/23 07:30 07/14/23 07:30 07/14/23 07:30
I&O
07/13/23 07/14/23 07/15/23
06:59 06:59 06:59
Intake Total 2640 / 2640 0 / 1680
Balance 2640 / 2640 1680 / 1680
Physical Exam
Physical Exam
GEN: No acute distress, conversant, pleasant
HEENT: anicteric, extraocular movements intact, clear oropharynx without exudates
GI: soft, mildy-distended, epigastric tender to palpation, normal active bowel sounds, no hepatosplenomegaly
EXT: warm, well perfused, trace edema bilaterally
NEURO: AAOx3, non-focal
[2023-07-14] MEDS: TIGAN 200 MG IM ×2 (12:59→22:29)
[2023-07-14 15:06] VITALS: BP 156/89
--- NOTE | 2023-07-14 15:45 | CM ---
Pt continues with pain.
Medicated for pain as needed.
Pt for HIDA scan .
Continues on Reglan .
[facility] saw patient due to no insurance.
PLAN Home no needs
[2023-07-14 16:00] VITALS: BP 156/94
--- NOTE | 2023-07-14 16:17 | PTCARENOTE ---
Addendum entered by Cecilia Yuen RN 07/14/23 16:21:
morphine given at 1506.
Original Note:
DARLYN ROJAS- order rec'd from Dr. Mckeon for IV morphine for HIDA scan. right wrist INT patent. vital signs charted. Morphine 2mg IV x 1 dose given without issue.
--- NOTE | 2023-07-14 16:37 | W.PN.HOSP.TC ---
Today's Communication/Plan
-
Reglan
Tigan
HIDA with CCK
Attempt full liquid diet
Assessment / Plan
Assessment / Plan
IMPRESSION:
Persistent nausea and vomiting.
Unclear etiology
Afebrile and hemodynamically stable, nontoxic-appearing
Exam with benign abdomen
Laboratory workup including CBC CMP within normal limits
Abdominal ultrasound unremarkable
PLAN:
Urine drug screen negative
Urinalysis and reflex to culture
Hemoglobin A1c, TSH, normal
CT a/p limited without contrast (was not able to tolerate) unrevealing
EGD 07/12 unremarkable and unrevealing for cause of persistent nausea and emesis
CT head with no acute abnormalities ruling out central causes
Given persistent symptoms including upper abdominal pain, cholelithiasis will check HIDA with CCK
IV PPI
Reinstated on standing dose of Reglan.
Start Tigan
Attempt full liquid diet.
Wean off narcotics
Full code
DVT prophylaxis with heparin.
Anticipated Discharge: 24 - 48 hours
Subjective/Interval History
-
Date of Service: July 14, 2023
Objective Data
-
Vital Signs:
Vital Signs
Temp Pulse Resp BP Pulse Ox
98.0 F 59 16 156/89 99
07/14/23 07:30 07/14/23 15:06 07/14/23 07:30 07/14/23 15:06 07/14/23 15:06
I&O
07/13/23 07/14/23 07/15/23
06:59 06:59 06:59
Intake Total 2639 / 2640 1679
Balance 2640 / 2640 1679
Physical Exam
-
General: Well Developed and No Apparent Distress
HEENT: Normocephalic, Atraumatic and Moist Mucous Membranes
Respiratory: Clear to Auscultation
Cardiac: Regular Rhythm and S1/S2; Negative Murmur, Rub or Gallop
GI: Soft, Nontender, Nondistended and Normal Bowel Sounds; Negative Organomegaly
Rectal: Deferred by Provider
Musculoskeletal: No Clubbing, No Cyanosis and No Edema
Skin: Negative Rash
Neuro: Nonfocal/Grossly Intact
[2023-07-14] MEDS: REGLAN 10 MG IV ×2 (17:28→23:10)
[2023-07-14] MEDS: COLACE 100 MG PO (20:12)
[2023-07-14 23:00] VITALS: BP 110/63
[2023-07-15] MEDS: DILAUDID 0.5 MG IV ×5 (04:28→21:28)
[2023-07-15] MEDS: ZOFRAN 4 MG IV ×2 (04:28→13:09)
[2023-07-15] MEDS: REGLAN 10 MG IV (05:48)
[2023-07-15 07:31] VITALS: BP 128/88
[2023-07-15] MEDS: PROTONIX IV 40 MG IV ×2 (08:02→20:04)
[2023-07-15] MEDS: COLACE 100 MG PO ×2 (08:02→20:03)
[2023-07-15] MEDS: NSS (PRESERVATIVE FREE) 10 ML IV ×2 (08:03→20:05)
[2023-07-15] MEDS: TIGAN 200 MG IM (08:05)
[2023-07-15 09:49] LABS: ALT (SGPT) 50 U/L (0-35); AST (SGOT) 22 U/L (14-36); Albumin 3.7 g/dl (3.5-5.0); Alkaline Phosphatase 58 U/L (38-126); Blood Urea Nitrogen 8 mg/dl (7-17); Carbon Dioxide 28 mmol/L (22-30); Chloride 100 mmol/L (98-107); Estimated Creatinine Clearance 121 ml/min; Glucose 90 mg/dl (70-99); Potassium 3.4 mmol/L (3.5-5.1); Sodium 134 mmol/L (135-145); Total Protein 5.8 g/dl (6.3-8.2); eGFR > 60.00
[2023-07-15 10:13] LABS: % Basophils 0.6 % (0-2); % Eosinophils 4.3 % (0-6); % Immature Granulocytes 0.3 % (0-0.5); % Monocytes 11.8 % (1.7-9.3); Absolute Eosinophils 0.3 10^3/uL (0-0.7); Absolute Lymphocytes 2.5 10^3/uL (1.2-3.4); Absolute Monocytes 0.7 10^3/uL (0.1-0.6); Absolute Neutrophils 2.8 10^3/uL (1.4-6.5); Hematocrit 35.2 % (37.0-47.0); Mean Corp Hgb Conc. 36.9 g/dL (33.0-37.0); Mean Corpuscular Hgb 32.2 pg (27.0-31.0); Mean Corpuscular Volume 87.1 fL (81.0-99.0); Mean Platelet Volume 9.2 fL (7.4-10.4); Nucleated Red Blood Cells % 0 %; Platelet Count 255 10^3/uL (130-400); Red Blood Cell Count 4.04 10^6/uL (4.20-5.40); Red Cell Dist. Width 11.3 % (11.5-14.5); White Blood Cell Count 6.3 10^3/uL (4.8-10.8)
--- NOTE | 2023-07-15 10:26 | W.PN.GI.CBS2 ---
Today's Communication / Plan
-
Adv to low residue diet
Reglan change to oral pills
Given abd US, CTAP CT head, EGD HIDA AXR all done on this admission without significant cause found for N/V. No further GI testing indicated
GI will sign off please call for questions
Assessment / Plan
-
The pt is a 38-year-old female with past medical history significant for pancreatic exocrine insufficiency, GERD who was previously on pancreatic enzymes however had to stop this because of no insurance, omeprazole 20 mg [id number] as an
outpatient who presents to the emergency room with intractable nausea and vomiting. WBC count 11.7 (up from 10.0), hemoglobin 12.0, hematocrit 35.0, platelet count 256, sodium 140, potassium 3.5, chloride 110, CO2 19, BUN 16, creatinine 0.7, glucose
111, hemoglobin A1c 5.4, calcium 9.8, total bilirubin 1.3, AST 24, ALT 16, alk phos 62, albumin 4.5, hCG qualitative negative, lipase 58, TSH 2.71, urine tox screen negative, UA trace ketones, trace occult blood, moderate bacteria with trace
glucose, moderate mucus and epithelial cells. Ultrasound the abdomen shows no acute hepatobiliary abnormality. Patient was initially treated with bowel rest, pantoprazole 40 mg daily, Zofran 4 mg IV every 6, Compazine 10 mg IV every 6 as needed.
She was also given 1 dose of Reglan 10 mg, Haldol, Benadryl without much success yesterday. She was not able to tolerate any sips of clears and immediately vomited this up today. Patient had an EKG and her QTc is currently 466. She has been on
Reglan around the clock with cessation of her vomiting but continues with nausea and epigastric burning.
Problem list:
-Intractable nausea, vomiting
-Epigastric pain
-elevated AST/ALT
-hx GERD
-hx pancreatic exocrine insufficiency
Recommendations:
- Adv to low residue diet
- Improving on reglan ATC, switch to oral
- EKG with normal QTC
- Trend LFTs
- C/w PPI IV BID
- Await results of EGD biopsies
- At this juncture after unremarkable abd US, CTAP, CT head, EGD and HIDA scan all done on this admission no further GI workup indicated inpatient
- Can consider gastric emptying study outpt basis (cannot do current as regland and opioid use would render results inconclusive)
GI will sign off please call for questions
Subjective
Subjective
Date of Service: July 15, 2023
Her nausea improved. AXR and HIDA yesterday is not remarkable. Tolerating FLD
Objective
Data Reviewed
Laboratory Data:
Laboratory Results
07/15/23 08:58
07/15/23 08:58
Laboratory Results
Total Bilirubin 1.0 mg/dl (0.2-1.3) 07/15/23 08:58
AST 22 U/L (14-36) 07/15/23 08:58
ALT 50 U/L (0-35) H 07/15/23 08:58
Alkaline Phosphatase 58 U/L (38-126) 07/15/23 08:58
Lipase 58 U/L (23-300) 07/10/23 11:33
Vital Signs and I&O:
Vital Signs
Temp Pulse Resp BP Pulse Ox
98.3 F 54 16 128/88 99
07/15/23 07:31 07/15/23 07:31 07/15/23 07:31 07/15/23 07:31 07/15/23 07:31
I&O
07/14/23 07/15/23 07/16/23
06:59 06:59 06:59
Intake Total 1679
Balance 1679
Physical Exam
Physical Exam
GEN: No acute distress, conversant, pleasant
HEENT: anicteric, extraocular movements intact, clear oropharynx without exudates
GI: soft, non-distended, not tender to palpation, normal active bowel sounds, no hepatosplenomegaly
EXT: warm, well perfused, trace edema bilaterally
NEURO: AAOx3, non-focal
--- NOTE | 2023-07-15 11:59 | W.PN.HOSP.TC ---
Addendum entered and electronically signed by Hernando Moyer MD 07/15/23 12:22:
General: Well Developed and No Apparent Distress
HEENT: Normocephalic, Atraumatic and Moist Mucous Membranes
Respiratory: Clear to Auscultation
Cardiac: Regular Rhythm and S1/S2; Negative Murmur, Rub or Gallop
GI: Soft, Nontender, Nondistended and Normal Bowel Sounds; Negative Organomegaly
Rectal: Deferred by Provider
Musculoskeletal: No Clubbing, No Cyanosis and No Edema
Skin: Negative Rash
Neuro: Nonfocal/Grossly Intact
Addendum entered and electronically signed by Hernando Moyer MD 07/15/23 12:03:
Mild hypokalemia
replete
Hyponatremia
Original Note:
Today's Communication/Plan
-
Monitor vital signs see plan
Trial low rest diet
Antiemetics
Assessment / Plan
Assessment / Plan
IMPRESSION:
Persistent nausea and vomiting.
Unclear etiology
Afebrile and hemodynamically stable, nontoxic-appearing
Exam with benign abdomen
Laboratory workup including CBC CMP within normal limits
Abdominal ultrasound unremarkable
PLAN:
Urine drug screen negative
Urinalysis and reflex to culture
Hemoglobin A1c, TSH, normal
CT a/p limited without contrast (was not able to tolerate) unrevealing
EGD 07/12 unremarkable and unrevealing for cause of persistent nausea and emesis
CT head with no acute abnormalities ruling out central causes
Given persistent symptoms including upper abdominal pain, cholelithiasis, HIDA scan negative
IV PPI
Slightly feeling better 07/14. GI change Reglan to p.o. Will monitor on low-res. If tolerates then will do discharge planning. patient should follow-up with GI outpatient for possible gastric emptying study
Wean off narcotics
Full code
DVT prophylaxis with heparin.
General: Well Developed and No Apparent Distress
HEENT: Normocephalic, Atraumatic and Moist Mucous Membranes
Respiratory: Clear to Auscultation
Cardiac: Regular Rhythm and S1/S2; Negative Murmur, Rub or Gallop
GI: Soft, Nontender, Nondistended and Normal Bowel Sounds; Negative Organomegaly
Musculoskeletal: No Clubbing, No Cyanosis and No Edema
Skin: Negative Rash
Neuro: Nonfocal/Grossly Intact
Anticipated Discharge: Within 24 hours
Subjective/Interval History
-
Date of Service: July 15, 2023
Still has nausea and abdominal discomfort
Objective Data
-
Labs:
Laboratory Results
07/15/23
08:58
WBC 6.3
Hgb 13.0
Hct 35.2 L
Plt Count 255
Sodium 134 L
Potassium 3.4 L
Chloride 100
Carbon Dioxide 28
BUN 8
Creatinine 0.6
Glucose 90
Calcium 9.0
Total Bilirubin 1.0
AST 22
ALT 50 H
Alkaline Phosphatase 58
Vital Signs:
Vital Signs
Temp Pulse Resp BP Pulse Ox
98.3 F 54 16 128/88 99
07/15/23 07:31 07/15/23 07:31 07/15/23 07:31 07/15/23 07:31 07/15/23 07:31
I&O
07/14/23 07/15/23 07/16/23
06:59 06:59 06:59
Intake Total 1679
Balance 1679
[2023-07-15] MEDS: KCL 20 MEQ PO (12:13)
[2023-07-15] MEDS: REGLAN 10 MG PO ×3 (12:13→21:27)
[2023-07-15 15:48] VITALS: BP 106/70
[2023-07-15] MEDS: MELATONIN 5 MG PO (21:27)
[2023-07-15] MEDS: FLUSH (NSS) 1 FLUSH IV (21:29)
[2023-07-15 23:17] VITALS: BP 109/64
[2023-07-16] MEDS: DILAUDID 0.5 MG IV ×2 (05:34→09:42)
[2023-07-16 06:14] LABS: % Basophils 0.5 % (0-2); % Eosinophils 6.5 % (0-6); % Immature Granulocytes 0.3 % (0-0.5); % Monocytes 10.7 % (1.7-9.3); Absolute Eosinophils 0.4 10^3/uL (0-0.7); Absolute Lymphocytes 2.7 10^3/uL (1.2-3.4); Absolute Monocytes 0.7 10^3/uL (0.1-0.6); Absolute Neutrophils 2.8 10^3/uL (1.4-6.5); Hematocrit 35.7 % (37.0-47.0); Hemoglobin 12.9 g/dL (12.0-16.0); Mean Corp Hgb Conc. 36.1 g/dL (33.0-37.0); Mean Corpuscular Volume 88.6 fL (81.0-99.0); Mean Platelet Volume 9.2 fL (7.4-10.4); Nucleated Red Blood Cells % 0 %; Platelet Count 260 10^3/uL (130-400); Red Blood Cell Count 4.03 10^6/uL (4.20-5.40); Red Cell Dist. Width 11.4 % (11.5-14.5); White Blood Cell Count 6.7 10^3/uL (4.8-10.8)
[2023-07-16 06:32] LABS: ALT (SGPT) 35 U/L (0-35); AST (SGOT) 18 U/L (14-36); Albumin 3.4 g/dl (3.5-5.0); Alkaline Phosphatase 53 U/L (38-126); Blood Urea Nitrogen 11 mg/dl (7-17); Calcium 9.2 mg/dl (8.4-10.2); Carbon Dioxide 29 mmol/L (22-30); Chloride 101 mmol/L (98-107); Estimated Creatinine Clearance 91 ml/min; Glucose 93 mg/dl (70-99); Potassium 3.9 mmol/L (3.5-5.1); Sodium 137 mmol/L (135-145); Total Bilirubin 0.7 mg/dl (0.2-1.3); Total Protein 5.4 g/dl (6.3-8.2); eGFR > 60.00
[2023-07-16] MEDS: PROTONIX IV 40 MG IV (07:21)
[2023-07-16] MEDS: COLACE 100 MG PO (07:21)
[2023-07-16] MEDS: REGLAN 10 MG PO (07:21)
[2023-07-16] MEDS: NSS (PRESERVATIVE FREE) 10 ML IV (07:21)
[2023-07-16] MEDS: ZOFRAN 4 MG IV (07:22)
[2023-07-16 07:30] VITALS: BP 116/69
--- NOTE | 2023-07-16 11:19 | W.PN.HOSP.TC ---
Today's Communication/Plan
-
Monitor vital signs
see plan
discharge today
Time of discharge 37 minutes
Assessment / Plan
Assessment / Plan
IMPRESSION:
Persistent nausea and vomiting.
Unclear etiology
Afebrile and hemodynamically stable, nontoxic-appearing
Exam with benign abdomen
Laboratory workup including CBC CMP within normal limits
Abdominal ultrasound unremarkable
PLAN:
Urine drug screen negative
Urinalysis and reflex to culture
Hemoglobin A1c, TSH, normal
CT a/p limited without contrast (was not able to tolerate) unrevealing
EGD 07/12 unremarkable and unrevealing for cause of persistent nausea and emesis
CT head with no acute abnormalities ruling out central causes
Given persistent symptoms including upper abdominal pain, cholelithiasis, HIDA scan negative
IV PPI
Slightly feeling better 07/14. GI change Reglan to p.o. Will monitor on low-res. Patient tolerating low residue diet. Will discharge patient home. patient should follow-up with GI outpatient for possible gastric emptying study
Wean off narcotics
Full code
DVT prophylaxis with heparin.
General: Well Developed and No Apparent Distress
HEENT: Normocephalic, Atraumatic and Moist Mucous Membranes
Respiratory: Clear to Auscultation
Cardiac: Regular Rhythm and S1/S2; Negative Murmur, Rub or Gallop
GI: Soft, Nontender, Nondistended and Normal Bowel Sounds; Negative Organomegaly
Musculoskeletal: No Clubbing, No Cyanosis and No Edema
Skin: Negative Rash
Neuro: Nonfocal/Grossly Intact
Anticipated Discharge: Today
Subjective/Interval History
-
Date of Service: July 16, 2023
denies pain
Objective Data
-
Labs:
Laboratory Results
07/16/23
05:27
WBC 6.7
Hgb 12.9
Hct 35.7 L
Plt Count 260
Sodium 137
Potassium 3.9
Chloride 101
Carbon Dioxide 29
BUN 11
Creatinine 0.8
Glucose 93
Calcium 9.2
Total Bilirubin 0.7
AST 18
ALT 35
Alkaline Phosphatase 53
Vital Signs:
Vital Signs
Temp Pulse Resp BP Pulse Ox
97.9 F 50 14 116/69 96
07/16/23 07:30 07/16/23 07:30 07/16/23 07:30 07/16/23 07:30 07/16/23 07:30
I&O
07/15/23 07/16/23 07/17/23
06:59 06:59 06:59
Intake Total 2079 1380 / 1380
Balance 2079 1380 / 1380
--- NOTE | 2023-07-16 11:24 | W.DCSUMMARY ---
Discharge Summary
Discharge Data
Date of Admission: 07/12/23
Date of Discharge: 07/16/23
-
Pending Results: No
Hospital Course
38-year-old female came to the hospital with periodic episodes of nausea vomiting and abdominal pain. Patient was seen by gastroenterology throughout hospitalization. She also got a CT scan of the abdomen and pelvis which was unrevealing for any
acute pathology. She underwent EGD on 07/12 which was unremarkable and unrevealing for her because of persistent nausea and vomiting. Patient denied using any marijuana. Given her symptoms HIDA scan was also checked which was negative for any
cholecystitis. Patient was started on PPI. Patient was also initially started on IV Reglan which was later transitioned to oral. Patient symptoms over time continue to get better and she was also able to tolerate low residue diet. GI recommended
patient to continue Reglan with every meal and to follow-up with gastroenterology outpatient for possible gastric emptying study.
Discharge Plan
-
Patient Disposition: Home (Routine Discharge)
Discharge Diagnosis/Procedures: Persistent nausea vomiting, unclear etiology
Additional Diets: Low residue diet
Activity: As tolerated
Driving Restrictions: As prior to admission
Bathing Restrictions: None
Referrals:
Mary Kate Santana MD [Active] - in one week
UNKNOWN - PT DOES,NOT KNOW [Family Provider] - in less than 1 week
Prescriptions:
New
acetaminophen 325 mg Tablet
650 mg PO Q4HPRN PRN (Reason: mild pain/T >100.5) Qty: 0 0RF
polyethylene glycol 3350 [HealthyLax] 17 gram Powder In Packet
17 g PO DAILY Qty: 0 0RF
docusate sodium 100 mg Capsule
100 mg PO BID Qty: 0 0RF
metoclopramide HCl 10 mg Tablet
10 mg PO ACHS Qty: 120 0RF
simethicone 80 mg Tablet,Chewable
80 mg PO QIDPRN PRN (Reason: gas pain) Qty: 30 0RF
pantoprazole [Protonix] 40 mg tablet,delayed release (DR/EC)
40 mg PO BID Qty: 60 0RF
ondansetron HCl 4 mg tablet
4 mg PO Q8H PRN (Reason: nausea and vomiting) 5 Days Qty: 15 0RF
Discharge Orders:
Discharge Patient (As Directed); Ordered 07/16/23
Ordered By: Hernando Moyer
Discharge Date and Time
Discharge Date/Time: 07/16/23 11:45
Print Language: NAURUAN
--- NOTE | 2023-07-16 12:12 | CM ---
Patient discharged before case management was able to meet with patient
== END 2023-07-16 11:45 | disposition home or self-care (01) | DRG 392 ==
LOC: 3 WEST ACU 08:40
PROVIDERS: Physician Assistant; ADMITTING PHYSICIAN Internal Medicine; ATTENDING PHYSICIAN Internal Medicine; CONSULT PHYSICIAN Internal Medicine Gastroenterology; EMERGENCY PHYSICIAN Emergency Medicine
PROC: 0DB98ZX Excision of Duodenum, Via Natural or Artificial Opening Endoscopic, Diagnostic (ICD-10-PCS; 2023-07-13)
PROC: 0DB68ZX Excision of Stomach, Via Natural or Artificial Opening Endoscopic, Diagnostic (ICD-10-PCS; 2023-07-13)
DX: R11.2 Nausea with vomiting, unspecified (principal); E87.1 Hypo-osmolality and hyponatremia; R10.11 Right upper quadrant pain; K21.9 Gastro-esophageal reflux disease without esophagitis; R11.14 Bilious vomiting; F17.210 Nicotine dependence, cigarettes, uncomplicated; K86.81 Exocrine pancreatic insufficiency; K59.00 Constipation, unspecified; F11.90 Opioid use, unspecified, uncomplicated; E87.6 Hypokalemia
CPT/HCPCS: 88305; 70450; 74018; 74177; 76700; 78226; 80053; 80306; 81003; 81015; 83036; 83690; 84443; 84703; 85025; 86704; 86706; 86708; 86709; 87086; 87340; 88342; 93005; 96361; 96374; 96375; 99285; 99406; A9537; Q9967

== ENCOUNTER 2023-07-17 22:56 | Observation (INO) | payer SELFPAY ==
[2023-07-17 18:55] VITALS: BP 136/93
--- NOTE | 2023-07-17 19:21 | ED.GENMED ---
History of Present Illness
General
Chief Complaint: Abdominal Symptoms
Source: patient
Exam Limitations: none
Time Seen by Provider: 07/17/23 19:00
Travel History
Have you had any contact with someone who has COVID-19?: No
Do you have any symptoms of coronavirus? Fever > 100 degrees, chills, cough, shortness of breath, sore throat, loss of taste or smell, muscle aches, or headache?: No
History of Present Illness
History of Present Illness:
This is a 38 year old female that comes in with c/o vomiting and abd pain. Patient was just discharged yesterday with the same complaints. States that today she started at 10am with nausea and by 11:30am she was vomiting. States that she also has
diarrhea, sweats, slight headache and dizziness. Denies any fever, chills, chest in, SOB, urinary burning.
Past History
Past History
ED Past Medical History: None
ED Past Surgical History: Tonsilectomy
Social History
Tobacco: Smoker
Alcohol: None
Personal:
Living: alone
Review of Systems
Review of Systems
All Other Systems: ROS reviewed and negative except as documented in HPI and ROS
Constitutional: Reports no symptoms; Denies fever or chills
EENT: Reports no symptoms
Respiratory: Reports no symptoms; Denies cough or trouble breathing
Cardiac: Reports no symptoms; Denies chest pain
ABD/GI: Reports abdominal pain, nausea, vomiting and diarrhea
: Reports no symptoms; Denies dysuria, frequency or urgency
Musculoskeletal: Reports no symptoms
Skin: Reports no symptoms
Neurological: Reports dizzy and headache
Psychiatric: Reports no symptoms
Phy Exam
General Physical Exam
General Presentation: no apparent distress
General age: appears stated age
General Skin: warm and dry
General Habitus: normal
General Mental: alert
General Hydration: dry mucous membranes
ENT Exam
ENT Exam: TM's normal, pharynx normal and neck supple
Eye Exam
Eye Exam: EOMI
Cardiovascular Exam
Cardiovascular Exam: regular rate/rhythm, no edema, no murmur and normal peripheral pulses
Pulmonary Exam
Pulmonary Exam: lungs clear, no respiratory distress, no rales, chest non tender, no crackles, no rhonchi, no wheezing and no cough
Gastrointestinal Exam
Gastrointestinal Exam: soft, no organomegaly, no pulsatile mass, non distended, tender (Upper abd tenderness with palpation and slight left sided) and other (Hypoactive bowel sounds)
Musculoskeletal Exam
Musculoskeletal Exam: full ROM and no edema
Skin Exam
Skin Exam: normal color, warm/dry, no rash and no petechia
Psychiatric Exam
Psychiatric Exam: normal mood/affect
Course
Orders/Labs/Results
Orders:
Orders
07/17/23 19:19
0.9% Sodium Chloride 1000 ml [Nss] 1,000 ml IV BOLUS
Metoclopramide [Reglan] 10 mg IV NOW STA
Test Result ONCE
07/17/23 19:21
CT Abd/pel W Iv And Oral Contr Urgent
Comment:
Reason For Exam: abd pain,
Iohexol [Omnipaque] See Protocol PO NOW STA
07/17/23 19:57
Complete Blood Count/With Diff Urgent
Comprehensive Metabolic Panel Urgent
HCG, Serum Qualitative Screen Urgent
07/17/23 20:31
Trimethobenzamide [Tigan] 200 mg IM NOW STA
07/17/23 21:44
Fentanyl, Urine Urgent
Urine Drug Abuse Screen Urgent
Date Specimen was Collected: 07/17/23
Time Specimen was Collected: 21:43
07/17/23 21:46
Ketorolac [Toradol] 30 mg IV NOW STA
07/17/23 22:39
Admit/Transfer Patient As Directed
Co-Sign Provider:
Level of Care: Observation services
Assign to:: Medical/Surgical
Physician / Group: [email or web address]
Diagnosis: Intractable nausea, vomiting
07/17/23 22:40
Code Status As Directed
Resuscitation Status: Full Code
07/17/23 23:00
Flush (0.9% Sodium Chloride) [Flush (Nss)] See Dose Instructions IV PER PROTOCOL
Abnormal Lab Results
07/17/23 07/17/23
19:57 21:44
MCH 32.1 H pg
(27.0-31.0)
Abs Immat Gran (auto) 0.1 H 10^3/uL
(0-0.05)
Absolute Neuts (auto) 7.3 H 10^3/uL
(1.4-6.5)
Absolute Lymphs (auto) 0.9 L 10^3/uL
(1.2-3.4)
Immature Gran % 0.6 H %
(0-0.5)
Neutrophils % 85.1 H %
(42.2-75.2)
Lymphocytes % 11.0 L %
(20.5-51.1)
Glucose 122 H mg/dl
(70-99)
ALT 42 H U/L
(0-35)
Albumin 5.2 H D g/dl
(3.5-5.0)
Urine Opiates Screen Positive H
(Negative)
Ur Oxycodone Screen Positive H
(Negative)
07/17/23 19:57
07/17/23 19:57
Glucose nonfasting. ALT elevation. Albumin slightly elevated. HCG negative. Urine drug positive for Opiates and oxycodone.
Vital Signs
Initial and Last Documented VS:
Initial Vital Signs
Temp Pulse Resp BP Pulse Ox
98.3 F 114 20 136/93 99
07/17/23 18:55 07/17/23 18:55 07/17/23 18:55 07/17/23 18:55 07/17/23 18:55
Last Documented Vital Signs
Temp Pulse Resp BP Pulse Ox
99.8 F 75 20 148/91 98
07/17/23 21:39 07/17/23 21:39 07/17/23 18:55 07/17/23 21:39 07/17/23 21:39
MDM/Problems Addressed
Differential Diagnosis Includes:
Colitis, Cyclical vomiting.
MDM/Problems Addressed:
This is a 38 year old female that was just discharge yesterday. patient was here with nausea and vomiting. States that this has started all over again and she has taken all the medicaiton she was given for home and nothing is helping.
Will check labs. IV fluids. Antiemetic, and CT scan.
Chronic conditions affecting care:
NA
Acute Exacerbation and/or Progression of Chronic Illness:
NA
*Radiology
Radiology exam reviewed: radiology read reviewed (CT-Under distention versus mild colonic wall thickenning suggesting possibilty of colitis in the proper clinical setting. Few small proximal sigmoid colon diverticula without evidence of acute
diverticulitis. No evidence of bowel obstruction. Previous pelvic ascites has resolved. )
*Pulse Oximetry
Patient hypoxic: no
*EKG
Interpreted by ED Provider?: NA
Rate: EKG- N/A
*Straightedge Machine Operator Helper Interpretation
Rate: Straightedge Machine Operator Helper- N/A
*Critical Care Note
Total Time (30-74mins, 75-104mins- exclusive of procedures): Not Applicable
ED Attending Note
-
Portions of this chart may have been created with voice recognition software.� Occasional wrong word or��sound alike� substitutions may have occurred due to the inherent limitations of voice recognition software.
Discharge Plan
Departure
Patient Disposition: Admit
Date of Disposition: 07/17/23
Time of Disposition: 22:15
Admit to: Med/Surg
Presentation/result/management discussed w/ accepting MD/DO: Hospitalist
Patient with high blood pressure during this ER visit?: Yes
Condition: Good
Covid-19: Not Applicable
Discharge Problem:
Nausea & vomiting, Abdominal pain, Colitis
Interventions
Interventions:
*Risk Screen - Suicide Last Done: 07/17/23 18:55
*General Assessment Last Done: 07/17/23 18:55
*Neglect/Abuse Screening Last Done: 07/17/23 18:55
GN-Aqpdyd-Dcjrtuqoao Assessment Last Done: 07/17/23 21:47
[2023-07-17] MEDS: NSS 1000 IV ×2 (19:51→23:57)
[2023-07-17] MEDS: REGLAN 10 MG IV (19:51)
[2023-07-17] MEDS: OMNIPAQUE 50 ML PO (19:57)
[2023-07-17 20:09] LABS: % Basophils 0.4 % (0-2); % Immature Granulocytes 0.6 % (0-0.5); % Monocytes 2.9 % (1.7-9.3); % Neutrophils 85.1 % (42.2-75.2); Absolute Immature Granulocytes 0.1 10^3/uL (0-0.05); Absolute Lymphocytes 0.9 10^3/uL (1.2-3.4); Absolute Monocytes 0.3 10^3/uL (0.1-0.6); Absolute Neutrophils 7.3 10^3/uL (1.4-6.5); Hematocrit 40.1 % (37.0-47.0); Hemoglobin 14.8 g/dL (12.0-16.0); Mean Corp Hgb Conc. 36.9 g/dL (33.0-37.0); Mean Corpuscular Hgb 32.1 pg (27.0-31.0); Mean Platelet Volume 8.9 fL (7.4-10.4); Nucleated Red Blood Cells % 0 %; Platelet Count 309 10^3/uL (130-400); Red Blood Cell Count 4.61 10^6/uL (4.20-5.40); White Blood Cell Count 8.5 10^3/uL (4.8-10.8)
[2023-07-17 20:25] LABS: HCG, Serum Qualitative Screen Negative
[2023-07-17 20:34] LABS: ALT (SGPT) 42 U/L (0-35); AST (SGOT) 31 U/L (14-36); Albumin 5.2 g/dl (3.5-5.0); Alkaline Phosphatase 66 U/L (38-126); Blood Urea Nitrogen 12 mg/dl (7-17); Calcium 10.2 mg/dl (8.4-10.2); Carbon Dioxide 24 mmol/L (22-30); Chloride 102 mmol/L (98-107); Glucose 122 mg/dl (70-99); Potassium 4.8 mmol/L (3.5-5.1); Sodium 138 mmol/L (135-145); Total Bilirubin 0.8 mg/dl (0.2-1.3); Total Protein 7.9 g/dl (6.3-8.2); eGFR > 60.00
[2023-07-17] MEDS: TIGAN 200 MG IM (20:38)
[2023-07-17 21:39] VITALS: BP 148/91
[2023-07-17] MEDS: TORADOL 30 MG IV (21:51)
[2023-07-17 22:14] LABS: Amphetamines Negative (Negative); Barbiturates Negative (Negative); Benzodiazepines Negative (Negative); Buprenorphine Negative (Negative); Cocaine Negative (Negative); Marijuana Negative (Negative); Methadone Negative (Negative); Methamphetamines Negative (Negative); Opiates Positive (Negative); Phencyclidine Negative (Negative); Tricyclic Antidepressants Negative (Negative)
--- NOTE | 2023-07-17 22:33 | HPS.HSE ---
Addendum entered and electronically signed by Aristeo Dunn MD 07/17/23 23:14:
CT AP
- Under distention versus mild colonic wall thickening suggesting possibility of colitis in the proper clinical setting.
- Few small proximal sigmoid colon diverticula without evidence of acute diverticulitis. No evidence of bowel obstruction.
- Previous pelvic ascites has resolved.
- await GI evaluation till then hold off ABx for now
Original Note:
Family Physician
-
Family Physician: PHYSICIAN PRIVATE
Chief Complaint
-
DC'd yesterd and still N/V recur
History of Present Illness
38F no significant PMHx DC'd yesterday following extensive w/u ( EGD, HIDA, CT AP) for intractable N/V.
NEG UDS on last admission.
Intractable N/V recurred this AM
Asso with diarrhea, sweats, slight headache and dizziness.
ROS
Denies any fever, chills, chest in, SOB, urinary burning
Medical History
Past Medical History
Past Medical History: Reports None
Past Surgical History: Reports None
Social History
Tobacco: Non-smoker
Alcohol: Occasional
Drug: None
Living: With Family
Family History
Family History: Not pertinent
Allergies / Home Medications
Allergies reflects when Allergies were last updated in [employer].
Home Medications with original date entered in [employer]
Allergy/Medication List:
Allergies
Allergy/AdvReac Type Severity Reaction Status Date / Time
No Known Allergies Allergy Verified 07/17/23 18:55
Home Medications
acetaminophen 325 mg tablet 650 mg (2 x 325 mg) PO Q4HPRN PRN mild pain/T >100.5 #0 tabs 07/16/23
docusate sodium 100 mg capsule 100 mg PO BID #0 caps 07/16/23
metoclopramide HCl 10 mg tablet 10 mg PO ACHS #120 tabs 07/16/23
ondansetron HCl 4 mg tablet 4 mg PO Q8H PRN nausea and vomiting 5 days #15 tabs 07/16/23
pantoprazole 40 mg tablet,delayed release (Protonix) 40 mg PO BID #60 tabs 07/16/23
polyethylene glycol 3350 17 gram oral powder packet (HealthyLax) 17 g PO DAILY #0 ea 07/16/23
simethicone 80 mg chewable tablet 80 mg PO QIDPRN PRN gas pain #30 tabs 07/16/23
Review of Systems
-
Constitutional: Reports No Symptoms
EENT: Reports No Symptoms
Respiratory: Reports No Symptoms
Cardiac: Reports No Symptoms
Abdomen/GI: Reports Nausea and Vomiting
: Reports No Symptoms
Musculoskeletal: Reports No Symptoms
Skin: Reports No Symptoms
Neurological: Reports No Symptoms
Endocrine: Reports No Symptoms
Hematologic/Lymphatic: Reports No Symptoms
Psych: Reports No Symptoms
Physical Exam
Vital Signs
Vital Signs
Temp Pulse Resp BP Pulse Ox
99.8 F 75 20 148/91 98
07/17/23 21:39 07/17/23 21:39 07/17/23 18:55 07/17/23 21:39 07/17/23 21:39
Physical Exam
General: Conversant and Other (looks tired )
HEENT: No Moist mucous membranes (dry)
Respiratory: Clear
Cardiac: S1/S2 and Regular Rhythm
Breast: Deferred by me
GI: Soft and Tender (Upper abd tenderness )
Rectal: Deferred by Provider
Genito-urinary: Deferred by me
Musculoskeletal: No Edema
Skin: Warm and Dry
Neuro: AO x 3
Psych: Calm
Laboratory Results
-
07/17/23 19:57
07/17/23 19:57
Laboratory Results
Total Bilirubin 0.8 mg/dl (0.2-1.3) 07/17/23 19:57
AST 31 U/L (14-36) 07/17/23 19:57
ALT 42 U/L (0-35) H 07/17/23 19:57
Alkaline Phosphatase 66 U/L (38-126) 07/17/23 19:57
Data Reviewed
-
CT Scan: Other (pending )
Lab Data: Labs Reviewed by me
Old Records: Reviewed
Impression/Plan
-
Reviewed VS: T 99.8 unremarkable VSS
Data
nl CBC
nl CMP
improved abn transaminase
07/10/23 NEG UDS
07/17/23 UDS: POS Opiates , POS oxycodone
07/12/23 CT AP
Markedly limited evaluation of intestinal tract, particularly large bowel as a result of relative paucity of oral contrast able to be tolerated. Of particular note, majority of large bowel not opacified with oral contrast and majority of transverse
and descending colon virtually completely empty although suggestion of some wall thickening of at least the transverse colon which is at least suspicious for COLITIS
No intestinal obstruction or free air.
Mild hepatomegaly.
Likely small involuted left ovarian cyst with some accompanying small volume free fluid in the dependent true pelvis.
07/13/23 EGD: unremarkable
07/14/23 HIDA scan
Patent cystic and common bile ducts.
Negative for acute cholecystitis.
07/17/[address] AP
Last hospitalist admission: 07/12/23 - 07/16/23 P Dx: Persistent nausea vomiting, unclear etiology
ASSESSMENT & PLAN
Intractable nausea, vomiting with epigastric pain
- Unremarkable abd US, CTAP, CT head, EGD and HIDA scan all done on last admission
- HX GERD
- HX pancreatic exocrine insufficiency
- IVF and clear diet and ADAT
- IV Reglan
- Trend LFTs
- IV H2B
- to consider gastric emptying study outpt basis due to IP use of opioid and Reglan
- GI consult
DVT Px: SCD
Code: Full
Obs MS
[2023-07-17] MEDS: FLAGYL 500 MG 100 IV (23:13)
[2023-07-17 23:24] VITALS: BMI 22.5
[2023-07-17 23:29] VITALS: BP 158/96
[2023-07-17] MEDS: LEVAQUIN 100 IV (23:59)
[2023-07-18 00:07] LABS: Fentanyl, Urine Negative (Negative)
--- NOTE | 2023-07-18 00:24 | PTCARENOTE ---
Received Pt via stretcher with belonging; Pt admitted for intractable nausea and vomiting; Medsurg orders. Flagyl infusing in #20 RAC- IV team paged to switch site. PMH reviewed by RN and Pt. Plan of care reviewed. Call cantu within reach.
[2023-07-18] MEDS: MELATONIN 5 MG PO ×2 (01:20→22:38)
[2023-07-18] MEDS: TORADOL 10 MG IV (01:20)
[2023-07-18] MEDS: OFIRMEV 100 IV (01:50)
[2023-07-18] MEDS: TIGAN 200 MG IM (02:21)
[2023-07-18] MEDS: REGLAN 10 MG IV ×2 (03:59→09:59)
[2023-07-18 05:57] LABS: Hematocrit 38.1 % (37.0-47.0); Hemoglobin 13.7 g/dL (12.0-16.0); Mean Corpuscular Hgb 32.8 pg (27.0-31.0); Mean Corpuscular Volume 91.1 fL (81.0-99.0); Platelet Count 306 10^3/uL (130-400); Red Blood Cell Count 4.18 10^6/uL (4.20-5.40); Red Cell Dist. Width 11.9 % (11.5-14.5); White Blood Cell Count 9.4 10^3/uL (4.8-10.8)
[2023-07-18 06:31] LABS: ALT (SGPT) 37 U/L (0-35); AST (SGOT) 25 U/L (14-36); Albumin 4.8 g/dl (3.5-5.0); Alkaline Phosphatase 64 U/L (38-126); Blood Urea Nitrogen 10 mg/dl (7-17); Calcium 9.9 mg/dl (8.4-10.2); Carbon Dioxide 24 mmol/L (22-30); Chloride 101 mmol/L (98-107); Estimated Creatinine Clearance 121 ml/min; Glucose 104 mg/dl (70-99); Potassium 4.3 mmol/L (3.5-5.1); Sodium 135 mmol/L (135-145); Total Bilirubin 0.8 mg/dl (0.2-1.3); Total Protein 7.2 g/dl (6.3-8.2); eGFR > 60.00
[2023-07-18 06:55] LABS: TSH 0.72 uIU/ml (0.47-4.68)
[2023-07-18 07:00] VITALS: BP 115/64
[2023-07-18] MEDS: NSS (PRESERVATIVE FREE) 8 ML IV (08:26)
[2023-07-18] MEDS: PEPCID 20 MG IV (08:26)
[2023-07-18] MEDS: DILAUDID 0.5 MG IV ×3 (09:58→21:16)
[2023-07-18] MEDS: NSS (PRESERVATIVE FREE) 10 ML IV (10:50)
[2023-07-18] MEDS: PROTONIX IV 40 MG IV (10:50)
--- NOTE | 2023-07-18 11:14 | PTCARENOTE ---
assumed care of pt from previous shift at 0715. during walking rounds, pt sleeping soundly. pt awakened to complete assessment and medication administration. pt c/o abdominal discomfort and requested pain medication. Marsteller text to Dr Vega.
pt given clear liquid tray and after only a few sips and teaspoons of jello-pt immediately vomited. pt then c/o feeling nauseous. pt medicated with Dilaudid and Reglan per APR. upon entering room for pain re-assessment. pt sleeping soundly, c/o
pain relieved only a small amount-6 on pain scale. will observe.
--- NOTE | 2023-07-18 12:00 | CON.GI ---
Addendum entered and electronically signed by Cherise Rosales MD 07/18/23 15:09:
I saw and examined the patient.
The SENIOR TREASURY CONSULTANT's note was reviewed and I agree with the note.
Comment: This is a 38-year-old female who has been having symptoms of chronic epigastric pain with intermittent episodes of nausea vomiting and had a recent admission and was DC'd on 07/16/2023 after extensive workup for the symptoms. She had
ultrasound, HIDA scan, CT abdomen pelvis and CT head and EGD which were essentially unremarkable with no obvious cause identified for her symptoms and she was recommended an outpatient gastric emptying study and DC'd on Reglan. She also has a prior
history of EPI she has seen GI in [place] and had endoscopy and a colonoscopy and she also follows up with GI at [place] but has not really followed up recently as outpatient she used to be on pancreatic enzymes but has been off of it for the past
couple of months. She states that she was able to tolerate 1-2 meals after DC but had recurrent symptoms and came back to the ER. CT shows possible underdistention versus colitis she currently has no diarrhea no rectal bleeding she also denies any
use of marijuana and admits to occasional alcohol 2-3 times a week. She also had an EGD during her prior admission on 07/13/2023 which showed mild gastritis biopsies were negative for H. pylori
Assessment and plan 1 recurrent symptoms of nausea vomiting with epigastric pain could be related to possible cyclic vomiting syndrome. Will try Compazine she did not have much improvement with Zofran. Will need outpatient gastric emptying study
when she is off of the Reglan and opiates. Would try to minimize use of opiates. Continue PPI. Will also DC antibiotics I doubt she has colitis she currently has no diarrhea colon thickening could be related to underdistention and would recommend
outpatient colonoscopy with her outpatient mds rn at [place].
Original Note:
Consultation
-
Date/Time Consultation Requested: 07/17/23 2330
Date/Time Consultation Performed: 07/18/23 1200
Requesting Provider: Aristeo Dunn MD
Performing Provider: LAM Nava, Cherise Rosales MD
Reason for Consultation: nausea/vomiting
Medical History
Chief Complaint / HPI
Chief Complaint: nausea/vomiting
History of Present Illness:
38-year-old female with past medical history of pancreatic exocrine insufficiency, GERD who was previously on pancreatic enzymes however had to stop this because of no insurance. She was recently at [facility] with similar symptoms and
extensive work up with US, HCT, CT, EGD, HIDA with discharge home for one day then return with continued vomiting and abdominal pain that began 1 week ago. On return CT with concern for underdistention vs mild colonic wall thickening with
possible colitis. She states she had similar symptoms in past with work up with EGD and colonoscopy with GI in [facility] several years ago and states last GI follow up with at [place]. She admits to feeling of swelling in esophagus with
swallowing with some inflammation for continued vomiting. She admits to larger volume of bilious emesis prior to return. She has gotten minimal relief with current Reglan. She has had wt loss with inability to eat over last week. She also states
some diarrhea on return admission yesterday. She denies hx constipation or rectal bleeding. Rare NSAID use. Tox screen neg prior to last admission. Labs on return with normal cbc, glucose 122 AST 42 but otherwise stable chemistry.
Past Medical History
Past Medical History: GERD and Other (Pancreatic exocrine insufficiency, alternating diarrhea/constipation, intermittent vomiting )
Past Surgical History: Tonsilectomy and Other (wisdom teeth)
Social History
Tobacco: Smoker
Alcohol: Occasional (2-3 a week)
Drug: None
Employment: Employed
Family History
Family History: Other (No family history of gastrointestinal malignancy or IBD, father had pancreatitis multiple times ())
Allergies / Home Medications
Allergy/AdvReac Type Severity Reaction Status Date / Time
No Known Allergies Allergy Verified 07/17/23 18:55
�Medication �Instructions �Recorded
acetaminophen 325 mg tablet 650 mg (2 x 325 mg) PO Q4HPRN PRN 07/16/23
mild pain/T >100.5 #0 tabs
ondansetron HCl 4 mg tablet 4 mg PO Q8H PRN nausea and 07/16/23
vomiting 5 days #15 tabs
simethicone 80 mg chewable tablet 80 mg PO QIDPRN PRN gas pain #30 07/16/23
tabs
docusate sodium 100 mg capsule 100 mg PO BID Constipation 07/18/23
metoclopramide HCl 10 mg tablet 10 mg PO ACHS Gastrointestinal 07/18/23
Issue
pantoprazole 40 mg tablet,delayed 40 mg PO BID Gastrointestinal Issue 07/18/23
release (Protonix)
polyethylene glycol 3350 17 gram 17 g PO DAILY Constipation 07/18/23
oral powder packet (HealthyLax)
Review of Systems
-
History Source: Patient
Constitutional: Reports Weight Loss ( over last week-- per chart < 1kg )
EENT: Reports Sore Throat (with vomiting)
Respiratory: Reports No Symptoms
Cardiac: Reports No Symptoms
Abdomen/GI: Reports Abdominal Pain, Nausea, Vomiting and Diarrhea
: Reports No Symptoms
Musculoskeletal: Reports No Symptoms
Skin: Reports No Symptoms
Neurological: Reports Weakness
Endocrine: Reports No Symptoms
Hematologic/Lymphatic: Reports No Symptoms
Vital Signs
Temp Pulse Resp BP Pulse Ox
98.2 F 63 16 115/64 98
07/18/23 07:00 07/18/23 07:00 07/18/23 07:00 07/18/23 07:00 07/18/23 08:30
Physical Exam
Exam
General: Well Developed, Well Nourished and No Apparent Distress
HEENT: Normocephalic and Anicteric
Respiratory: Clear
Cardiac: Regular Rhythm
GI: Soft, Non Distended and Tender (diffuse worse epigastric area )
Musculoskeletal: No Clubbing and No Cyanosis
Skin: Warm and Dry
Neuro: Awake, Alert, AO x 3 and Other (sleeping when entered then awakens easily )
Psych: Calm
Results
WBC 9.4 10^3/uL (4.8-10.8) 07/18/23 05:34
Hgb 13.7 g/dL (12.0-16.0) 07/18/23 05:34
Hct 38.1 % (37.0-47.0) 07/18/23 05:34
MCV 91.1 fL (81.0-99.0) 07/18/23 05:34
Plt Count 306 10^3/uL (130-400) 07/18/23 05:34
Absolute Neuts (auto) 7.3 10^3/uL (1.4-6.5) H 07/17/23 19:57
Sodium 135 mmol/L (135-145) 07/18/23 05:34
Potassium 4.3 mmol/L (3.5-5.1) 07/18/23 05:34
Chloride 101 mmol/L (98-107) 07/18/23 05:34
Carbon Dioxide 24 mmol/L (22-30) 07/18/23 05:34
BUN 10 mg/dl (7-17) 07/18/23 05:34
Creatinine 0.6 mg/dL (0.6-1.0) 07/18/23 05:34
Calcium 9.9 mg/dl (8.4-10.2) 07/18/23 05:34
Total Bilirubin 0.8 mg/dl (0.2-1.3) 07/18/23 05:34
AST 25 U/L (14-36) 07/18/23 05:34
ALT 37 U/L (0-35) H 07/18/23 05:34
Alkaline Phosphatase 64 U/L (38-126) 07/18/23 05:34
Diagnostic Image Results:
07/17/23 CT Abd/pel W Iv And Oral Contr
Under distention versus mild colonic wall thickening suggesting possibility of colitis in the proper clinical setting.
Few small proximal sigmoid colon diverticula without evidence of acute diverticulitis.
No evidence of bowel obstruction.
Previous pelvic ascites has resolved.
07/12/23 CT Abd/pelvis W Iv Cont
Markedly limited evaluation of intestinal tract, particularly large bowel as a result of relative paucity of oral contrast able to be tolerated. Of particular note, majority of large bowel not opacified with oral contrast and majority of transverse
and descending colon virtually completely empty although suggestion of some wall thickening of at least the transverse colon which is at least suspicious for COLITIS
No intestinal obstruction or free air.
Mild hepatomegaly.
Likely small involuted left ovarian cyst with some accompanying small volume free fluid in the dependent true pelvis.
07/14/23- HIDA--- Patent cystic and common bile ducts. Negative for acute cholecystitis.
07/14/23 abd Normal bowel gas pattern.
Prior GI Procedures:
EGD: 07/13/23 - Normal esophagus.
- Z-line variable, 40 cm from the incisors.
- Erythematous mucosa in the gastric body. Biopsied.
- Normal examined duodenum. Biopsied.
bx neg with neg H pylori
Colonoscopy: prior completed [place] did not recall findings
Assessment / Plan
-
38-year-old female with past medical history of pancreatic exocrine insufficiency, GERD who was previously on pancreatic enzymes however had to stop this because of no insurance. She was recently at [facility] with similar symptoms and
extensive work up with US, HCT, CT, EGD, HIDA with discharge home for one day then return with continued vomiting and abdominal pain that began 1 week ago. On return CT with concern for underdistention vs mild colonic wall thickening with
possible colitis. She states she had similar symptoms in past with work up with EGD and colonoscopy with GI in [facility] several years ago and states last GI follow up with at [place]. She admits to feeling of swelling in esophagus with
swallowing with some inflammation for continued vomiting. She admits to larger volume of bilious emesis prior to return. She has gotten minimal relief with current Reglan. She has had wt loss with inability to eat over last week. She also states
some diarrhea on return admission yesterday. She denies hx constipation or rectal bleeding. Rare NSAID use. Tox screen neg prior to last admission. Labs on return with normal cbc, glucose 122 AST 42 but otherwise stable chemistry.
Problem list:
-Intractable nausea, vomiting
-Epigastric pain
-colitis per CT
-elevated AST
-hx GERD
-hx pancreatic exocrine insufficiency
Recommendations:
Etiology of symptoms related to gastroparesis, cyclical vomiting, pancreatic insufficiency vs other
pt still with nausea and vomiting not improved with Reglan
will stop Reglan as interacts and trial lower does Compazine if not effective increase to higher dose
keep abx off
limit narcotics as may worsen symptoms
discussed with patient other testing such as SB enterography, colon, GE scan cannot be complete with vomiting will need OP follow for testing when symptoms improved
cont clear diet
cont PPI BID
OP follow up with OP GI for further testing after admission -- pt has been seen last at [place]
-
-
Thank you for consultation and allowing me to participate in the patient's care. Please call the mechanical systems control engineer GI physician during the after hours with any questions or concerns.
[2023-07-18] MEDS: NSS 1000 IV (13:25)
[2023-07-18] MEDS: COMPAZINE 5 MG IV (13:38)
[2023-07-18 14:22] VITALS: BMI 22.5
[2023-07-18 15:00] VITALS: BP 101/58
--- NOTE | 2023-07-18 15:24 | CM ---
CM completed IA from chart review
Pt discharged on 07/15 and readmitted on 07/16
Pt resides with her 2 children (8 & 16 y/o)- her mother is caring for kids right now
They reside in a 2[address] with [address], 10 steps to second floor
Pt is independent and no DMEs
PCP- Dr Pinto
rx- [facility]
Pt is uninsured- referred to [facility]
Discharge Disposition- home, no needs anticipated
--- NOTE | 2023-07-18 15:56 | PTCARENOTE ---
report called to BOB Ruiz on . pt and all personal belongings transported via WC with volunteer.
--- NOTE | 2023-07-18 16:09 | PTCARENOTE ---
Received report and patient from . Pt walked from wheelchair to bed. Oriented to room and use of call cantu. No c/o nausea or pain at this time. Call cantu within reach.
[2023-07-18 16:15] VITALS: BP 105/57
--- NOTE | 2023-07-18 17:21 | W.PN.HOSP.TC ---
Today's Communication/Plan
-
Clear liquid diet.
Antiemetics
Assessment / Plan
Assessment / Plan
Impression:
Recurrent nausea and emesis
Epigastric abdominal pain likely mediated by recurrent emesis
Plan:
Recent hospitalization with extensive workup including imaging with CT of abdomen and pelvis, HIDA scan, upper endoscopy, all unremarkable
Abdominal examination remains benign
Unremarkable laboratory workup including CBC and CMP.
No clinical concern for infection including colitis (imaging with minimal oral contrast)
Advance diet to clear liquids.
Currently no indication for antibiotics.
Continue IV PPI with plan to transition to oral over the next 24 hours.
Continue Compazine, Tigan for symptomatic control.
No clear indication for Reglan.
May need outpatient gastric emptying study.
Minimize narcotics.
Anticipated Discharge: 24 - 48 hours
Subjective/Interval History
-
Date of Service: July 18, 2023
Objective Data
-
Labs:
Laboratory Results
07/18/23
05:34
WBC 9.4
Hgb 13.7
Hct 38.1
Plt Count 306
Sodium 135
Potassium 4.3
Chloride 101
Carbon Dioxide 24
BUN 10
Creatinine 0.6
Glucose 104 H
Calcium 9.9
Total Bilirubin 0.8
AST 25
ALT 37 H
Alkaline Phosphatase 64
Vital Signs:
Vital Signs
Temp Pulse Resp BP Pulse Ox
98.5 F 60 16 101/58 95
07/18/23 15:00 07/18/23 15:00 07/18/23 15:00 07/18/23 15:00 07/18/23 15:00
I&O
07/17/23 07/18/23 07/19/23
06:59 06:59 06:59
Intake Total 1420 / 1420
Balance 1419
Physical Exam
-
General: Well Developed and No Apparent Distress
HEENT: Normocephalic, Atraumatic and Moist Mucous Membranes
Respiratory: Clear to Auscultation
Cardiac: Regular Rhythm and S1/S2; Negative Murmur, Rub or Gallop
GI: Soft, Nontender, Nondistended and Normal Bowel Sounds; Negative Organomegaly
Rectal: Deferred by Provider
Musculoskeletal: No Clubbing, No Cyanosis and No Edema
Skin: Negative Rash
Neuro: Nonfocal/Grossly Intact
[2023-07-18] MEDS: NSS (PRESERVATIVE FREE) IV (19:51)
[2023-07-18 23:00] VITALS: BP 99/58
[2023-07-19] MEDS: NSS IV (01:20)
[2023-07-19 07:30] VITALS: BP 107/59
--- NOTE | 2023-07-19 07:49 | W.PN.GI.CBS2 ---
Today's Communication / Plan
-
Adv diet
DC home
F/u with her GI at [place] as OP
Assessment / Plan
-
38-year-old female with past medical history of pancreatic exocrine insufficiency, GERD who was previously on pancreatic enzymes however had to stop this because of no insurance. She was recently at [facility] with similar symptoms and
extensive work up with US, HCT, CT, EGD, HIDA with discharge home for one day then return with continued vomiting and abdominal pain that began 1 week ago. On return [address] with concern for underdistention vs mild colonic wall thickening with
possible colitis. She states she had similar symptoms in past with work up with EGD and colonoscopy with GI in [facility] several years ago and states last GI follow up with at [facility]. She admits to feeling of swelling in esophagus with
swallowing with some inflammation for continued vomiting. She admits to larger volume of bilious emesis prior to return. She has gotten minimal relief with current Reglan. She has had wt loss with inability to eat over last week. She also states
some diarrhea on return admission yesterday. She denies hx constipation or rectal bleeding. Rare NSAID use. Tox screen neg prior to last admission. Labs on return with normal cbc, glucose 122 AST 42 but otherwise stable chemistry.
Problem list:
-Intractable nausea, vomiting
-Epigastric pain
-colitis per CT
-elevated AST
-hx GERD
-hx pancreatic exocrine insufficiency
Recommendations:
Etiology of symptoms related to gastroparesis, cyclical vomiting, pancreatic insufficiency vs other
pt still with nausea and vomiting not improved with Reglan
will stop Reglan as interacts and trial lower does Compazine if not effective increase to higher dose
keep abx off
limit narcotics as may worsen symptoms
discussed with patient other testing such as SB enterography, colon, GE scan cannot be complete with vomiting will need OP follow for testing when symptoms improved
cont clear diet
cont PPI BID
OP follow up with OP GI for further testing after admission -- pt has been seen last at [facility]
recurrent symptoms of nausea vomiting with epigastric pain could be related to possible cyclic vomiting syndrome vs gastroparesis vs functional.
Better with Compazine, did not have relief with reglan or zofran
Will need outpatient gastric emptying study when she is off of the Reglan and opiates.
Would try to minimize use of opiates.
Continue PPI.
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
Will advance diet and OK to DC home today on Compazine PRN and consider Elavil as OP with her GI
Will s/o and will be available as needed
Subjective
Subjective
Date of Service: July 19, 2023
No further nausea or vomiting better with Compazine. Abdominal pain also improved, tolerated clear liquids yesterday
Objective
Data Reviewed
Laboratory Data:
Laboratory Results
07/18/23 05:34
07/18/23 05:34
Laboratory Results
Total Bilirubin 0.8 mg/dl (0.2-1.3) 07/18/23 05:34
AST 25 U/L (14-36) 07/18/23 05:34
ALT 37 U/L (0-35) H 07/18/23 05:34
Alkaline Phosphatase 64 U/L (38-126) 07/18/23 05:34
Vital Signs and I&O:
Vital Signs
Temp Pulse Resp BP Pulse Ox
98.0 F 51 16 99/58 98
07/18/23 23:00 07/18/23 23:00 07/18/23 23:00 07/18/23 23:00 07/18/23 23:00
I&O
07/18/23 07/19/23 07/20/23
06:59 06:59 06:59
Intake Total 1420 / 1420 1320 / 1320
Balance 1420 / 1420 1320 / 1320
Physical Exam
Physical Exam
Cardiology: Normal Sinus Rhythm
Pulmonary: Clear
GI: Soft, Non Distended, Non Tender and Normal Bowel Sounds
[2023-07-19] MEDS: NSS (PRESERVATIVE FREE) IV ×2 (09:57)
[2023-07-19] MEDS: PROTONIX IV IV (09:57)
[2023-07-19] MEDS: PROTONIX 40 MG PO (10:03)
[2023-07-19] MEDS: COMPAZINE 5 MG IV ×2 (10:23→17:23)
[2023-07-19] MEDS: DILAUDID 0.5 MG IV ×2 (10:23→15:04)
[2023-07-19 15:00] VITALS: BP 100/62
--- NOTE | 2023-07-19 16:14 | W.DS.TRANS ---
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
-
Discharge Instructions:
Discharge Diagnosis/Procedures Recurrent nausea and emesis
Epigastric abdominal pain likely mediated by
recurrent emesis
Diet Low Residue
Instructions:
Stand-Alone Forms:
Changes to Home Medications: Yes
Discharge Medications:
DC Medications w/original date entered in [employer]
acetaminophen 325 mg tablet 650 mg (2 x 325 mg) PO Q4HPRN PRN mild pain/T >100.5 #0 tabs 07/16/23
simethicone 80 mg chewable tablet 80 mg PO QIDPRN PRN gas pain #30 tabs 07/16/23
docusate sodium 100 mg capsule 100 mg PO BID Constipation 07/18/23
pantoprazole 40 mg tablet,delayed release (Protonix) 40 mg PO BID Gastrointestinal Issue 07/18/23
polyethylene glycol 3350 17 gram oral powder packet (HealthyLax) 17 g PO DAILY Constipation 07/18/23
prochlorperazine maleate 10 mg tablet (Compazine) 10 mg PO TID PRN nausea and vomiting #90 tabs 07/19/23
Home Medication Changes
Compazine replaced zofran
Pending Results: No
== END 2023-07-19 17:36 | disposition home or self-care (01) ==
LOC: 3 WEST ACU 22:56
PROVIDERS: Clinical Nurse Specialist Family Health; ADMITTING PHYSICIAN Internal Medicine; ATTENDING PHYSICIAN Internal Medicine; EMERGENCY PHYSICIAN Emergency Medicine; OTHER PHYSICIAN Internal Medicine Gastroenterology
DX: R11.2 Nausea with vomiting, unspecified (principal); R10.9 Unspecified abdominal pain; R19.7 Diarrhea, unspecified; R51.9 Headache, unspecified; R42 Dizziness and giddiness; F17.200 Nicotine dependence, unspecified, uncomplicated; K57.30 Diverticulosis of large intestine without perforation or abscess without bleeding; K21.9 Gastro-esophageal reflux disease without esophagitis; R10.13 Epigastric pain
CPT/HCPCS: 74177; 80053; 80306; 80307; 84443; 84703; 85025; 85027; 96361; 96365; 96372; 96375; 99285; Q9967